=== PATIENT | female | born 1945 | race Caucasian/White ===

== ENCOUNTER 2021-08-14 16:52 | Emergency (ER) | payer MEDICARE, MEDICAID, SELFPAY ==
--- NOTE | ~2021-08-14 | CT_ITS ---
EXAMINATION: CT ABDOMEN AND PELVIS WITH CONTRAST CLINICAL INFORMATION: Abdominal pain COMPARISON: CT abdomen pelvis 01/31/2016 TECHNIQUE: Multidetector volumetric images were obtained from the superior aspect of the liver through the pubic symphysis following administration 85 mL of Omnipaque 350 intravenous contrast. Sagittal and coronal reformatted images were obtained on the technologist's workstation. Oral contrast: No This CT examination was performed using dose optimization techniques as appropriate, variously including the following: *Automated exposure control *Adjustment of mA and/or kV according to patient size (this includes techniques or standardized protocols for targeted exams where dose is matched to indication/reason for exam; i.e. extremities or head) *Use of iterative reconstruction technique DLP: 359 mGy-cm FINDINGS: LUNG BASES: The visualized lung bases are unremarkable. LIVER, GALLBLADDER, AND BILIARY TREE: The liver is normal in size, shape, and attenuation. No focal hepatic lesion or biliary ductal dilatation is present. The gallbladder is unremarkable with no evidence of radiopaque gallstones, gallbladder wall thickening, or obvious pericholecystic inflammatory changes. PANCREAS: Pancreas is mildly atrophic. SPLEEN: Unremarkable. ADRENAL GLANDS: Unremarkable aside from some mild thickening of the left adrenal gland, unchanged. KIDNEYS AND URETERS: The kidneys are normal in size, shape, and attenuation. No hydronephrosis, hydroureter, or calculi seen. No perinephric stranding. BLADDER: Unremarkable. GASTROINTESTINAL TRACT: There is colonic diverticulosis without diverticulitis. The small and large bowel are otherwise unremarkable. The appendix is none seen but there is no evidence of appendicitis. ABDOMINAL WALL: No significant hernia is appreciated. LYMPH NODES: No retroperitoneal lymphadenopathy. VASCULAR: Calcific atherosclerotic changes present in the aorta and iliofemoral vessels without aneurysm. PELVIC VISCERA: Normal-appearing anteverted uterus is present. An abnormal adnexal mass or free intraperitoneal fluid is not seen. OSSEOUS STRUCTURES: There is a compression fracture of T12 with anterior wedging. Marked degenerative changes present from L1 through L3 with mild grade 1 retrolistheses of L1 upon L2 and L2 upon L3. There is grade 1 anterolisthesis of 4 upon L5 and marked degenerative changes at L5-S1. No bony destructive lesions are seen. CT/CT abdomen pelvis w con IMPRESSION: An etiology for the patient's abdominal pain is not found. Incidental findings as described above. Fleischner guidelines were followed.
--- NOTE | ~2021-08-14 | CT_ITS ---
EXAMINATION: CT HEAD WITHOUT CONTRAST CLINICAL INFORMATION: Altered mental status. Weakness. COMPARISON: CT head 02/14/2020 TECHNIQUE: Contiguous axial imaging was performed from the skull base to vertex without intravenous administration of contrast. Coronal and sagittal reformatted images are performed at the CT scanner. [This CT examination was performed using dose optimization techniques as appropriate, variously including the following: *Automated exposure control *Adjustment of mA and/or kV according to patient size (this includes techniques or standardized protocols for targeted exams where dose is matched to indication/reason for exam; i.e. extremities or head) *Use of iterative reconstruction technique] DLP: 583 mGy-cm. FINDINGS: There is no evidence of acute intracranial hemorrhage or territorial infarction. No abnormal mass-effect or midline shift is seen. Orozco to white matter differentiation is well preserved. No extra-axial fluid collections are identified. There is generalized global volume loss. There is moderate prominence of the ventricles and the sulci . There is mild hypodensity of the periventricular white matter due to chronic small vessel ischemic disease. There are vascular calcifications of the internal carotid arteries bilaterally. There is no osseous abnormality. The mastoid air cells and visualized portions of the paranasal sinuses are well-aerated. CT/CT head/brain wo con IMPRESSION: No acute intracranial pathology.
[2021-08-14 17:23] VITALS: BP 142/86; BP 183/104; PULSE 50; PULSE 60; RESP 16; TEMP 37.6; O2SAT 94; O2SAT 95; BMI 16.7
--- NOTE | 2021-08-14 17:39 | ED.ABDPAIN ---
HPI - Abdominal Pain General Chief Complaint: Abdominal Pain Stated Complaint: nausea/vomiting Time Seen by Provider: 08/14/21 17:37 Source: EMS Mode of arrival: EMS Limitations: other (Patient lethargic and not answering questions. ) History of Present Illness HPI narrative: This is a 76-year-old female pmhx alzheimers dementia, GERD, HTN, anxiety presenting from [facility] with complaints of abdominal pain, patient is not answering questions, she appears up lethargic/ confused. According to staff from [facility] patient has been complaining of abdominal pain and has had a few episodes of vomiting and nausea since lunchtime. They report that she was vomiting food contents. No blood noted. They state patient typically does not eat well. However today at lunch she had a large amount of food. Patient is not really communicating well with me, she just says ?I have a belly ache ?. MD elicited complaint: abdominal pain Pertinent past history: none Onset (ago): hour(s) (5) Pain Consistency: constant Location: diffuse Severity: moderate Radiation: none Migration to: no migration Exacerbating factors: nothing Relieving factors: nothing Associated symptoms: denies other symptoms Related Data Home Medications Medication Instructions Recorded Confirmed acetaminophen 325 mg tablet 650 mg PO Q4H PRN 08/14/21 08/14/21 acetaminophen 325 mg tablet 650 mg PO Q4H PRN 08/14/21 08/14/21 (Tylenol) aspirin 81 mg tablet,delayed 81 mg PO DAILY 08/14/21 08/14/21 release atorvastatin 20 mg tablet 20 mg PO BEDTIME 08/14/21 08/14/21 fluphenazine decanoate 25 mg/mL 50 mg IM Q3W 08/14/21 08/14/21 injection solution hydroxyzine HCl 25 mg tablet 25 mg PO BID PRN 08/14/21 08/14/21 levothyroxine 50 mcg tablet 50 mcg PO DAILY 08/14/21 08/14/21 lorazepam 0.5 mg tablet 0.5 mg PO TID 08/14/21 08/14/21 montelukast 10 mg tablet 10 mg PO BEDTIME 08/14/21 08/14/21 valsartan 40 mg tablet (Diovan) 40 mg PO DAILY 08/14/21 08/14/21 Previous Rx's Medication Instructions Recorded ondansetron 4 mg disintegrating 4 mg PO ONCE PRN #10 tab 08/14/21 tablet Allergies Allergy/AdvReac Type Severity Reaction Status Date / Time From SEROQUEL AdvReac Intermediate DROWSY AND Uncoded 12/02/20 13:16 INCREASED HR Review of Systems Review of Systems Yes Unobtainable due to mental status [facility] Past Medical History Attestation statement: The following information was validated with the patient. Source: old records reviewed and nursing notes reviewed Social History Social History (System 12/02/20 @ 13:16 by Patricia Seay) Advance Directives: No Advance Directives Information Provided: No Physical Exam ED Vital Signs: Vital Signs - 24 hr 08/14/21 17:23 08/14/21 18:31 08/14/21 20:10 Temperature 99.6 F 97.8 F 98.2 F Pulse Rate 60 58 76 Respiratory Rate 16 15 14 Blood Pressure 183/104 H 131/59 L 179/82 H Pulse Oximetry 94 100 98 BMI result Body Mass Index 16.7 Patient is noted to be hypertensive. Appearance: Awake, alert, moving all extremities. No acute distress.? Head: Normocephalic, atraumatic, no step-offs or deformities Eyes: Pupils equal, round and reactive to light.? ENT: Pharynx normal.? Neck: Normal inspection.? Neck supple.? CVS: Normal heart rate and rhythm.? Pulses normal.? Respiratory: No respiratory distress.? Breath sounds normal.? Abdomen: Soft and + tenderness diffusely .? Skin: Skin warm and dry.? Normal skin color.? Normal skin turgor.? Extremities: No lower extremity edema.? No calf ttp. 4/5 strength to bilateral upper and lower extremities Back: No midline tenderness, no C-spine tenderness, full range of motion, no CVA tenderness bilaterally Neuro: Awake, alert moving all extremities. No motor deficit.? No sensory deficit. Course Reevaluation(s) Reevaluation #1: Patient's CBC is noted to be at baseline. Patient's potassium is noted to be slightly low 3.2. Will be given 20 medical equivalents of potassium. Patient's bilirubin is a noted to be elevated at 1.2. Lipase is negative. Patient's nurse and tech have tried to straight cath the patient however no success. I will try to straight cath patient myself. UA pending. CT of the abdomen and pelvis and head pending. Time: 20:36 Reevaluation #2: CT of the abdomen and pelvis unable to pinpoint an etiology for the patient's abdominal pain. Time: 21:04 Reevaluation #3: Patient has not vomited. Her labs within normal limits. Potassium is been given. Her urine is clean, no infection. At this time patient will be discharge back to [facility]. Comfortable with DC. Time: 21:25 MDM - Abdominal Pain MDM Narrative Medical decision making narrative: 1730 76 yo f pmhx alzheimers dementia, GERD, HTN, anxiety BIBA from [facility] with diffuse abdominal pain since lunch and few episodes of nausea and vomiting PE diffusely tender. Patient is awake, alert, moving all extremities however she is not answering any of my questions. Plan- fluids, labs, zofran. CT abdomen and pelvis, cultures and lactic. Medical Records Attestation: I reviewed the patient's medical records. Lab Data Attestation: I reviewed the patient's lab results. Result diagrams: 08/14/21 18:18 08/14/21 18:18 Labs: Lab Results 08/14/21 08/14/21 08/14/21 Range/Units 18:18 18:18 18:18 WBC 9.6 (4.8-10.8) X10*3/uL RBC 4.85 (4.20-5.50) X10*6/uL Hgb 10.6 L (12.0-16.0) g/dl Hct 36.1 L (37.0-47.0) % MCV 74.4 L (80.0-98.0) fL MCH 21.9 L (27.0-33.0) pg MCHC 29.4 L (31.0-35.0) g/dl RDW 14.8 (11.0-16.0) % Plt Count 214 (160-400) X10*3/uL MPV 9.5 (9.4-12.3) fL Immature Gran % (Auto) 0.3 (0.0-0.4) % Neut % (Auto) 93.6 H (45-73) % Lymph % (Auto) 3.1 L (20-40) % [place] % (Auto) 2.6 (2-11) % Eos % (Auto) 0.2 (0-4) % Baso % (Auto) 0.2 (0-2) % Lymph # (Auto) 0.3 L (1.2-4.9) X10*3/uL [place] # (Auto) 0.3 (0.1-1.2) X10*3/uL Eos # (Auto) 0.0 (0.0-0.4) X10*3/uL Baso # (Auto) 0.0 (0.0-0.2) X10*3/uL Abs Immat Gran (auto) 0.03 (0.00-0.03) X10*3/uL Absolute Neuts (auto) 9.0 H (2.0-8.3) x10*3/uL Absolute Nucleated RBC 0.000 (0.0-0.012) X10*3/uL Nucleated RBC % (auto) 0.0 (0.0-0.2) /100WBC Sodium 144 (135-145) mmol/L Potassium 3.2 L (3.3-5.1) mmol/L Chloride 106 (96-108) mmol/L Carbon Dioxide 27 (22-29) mmol/L Anion Gap 14 (12-20) BUN 28 H (9-16) mg/dL Creatinine 0.96 (0.5-1.4) mg/dL Estim Creat Clear Calc 30.7 Estimated GFR 57 Random Glucose 117 H (60-115) mg/dL Lactic Acid (0.5-2.0) mmol/L Calcium 9.1 (8.4-10.2) mg/dL Magnesium 1.9 (1.6-2.6) mg/dL Total Bilirubin 1.2 H (0.0-1.0) mg/dL AST 22 (5-31) U/L ALT 17 (0-31) U/L Alkaline Phosphatase 65 (39-117) U/L Total Protein 6.5 (6.5-8.0) g/dL Albumin 4.1 (3.5-5.0) g/dL Lipase 55 (8-78) U/L Urine Color Urine Appearance Urine pH (5.0-8.0) Ur Specific [place] (1.005-1.025) Urine Protein (NEG-TRACE) MG/DL Urine Glucose (UA) (NEG) MG/DL Urine Ketones (NEG) MG/DL Urine Blood (NEG) Urine Nitrite (NEG) Ur Leukocyte Esterase (NEG) COVID-19 (ZOHRA) Negative (Negative) COVID-19 Clin Com See Note 08/14/21 08/14/21 Range/Units 18:18 20:50 WBC (4.8-10.8) X10*3/uL RBC (4.20-5.50) X10*6/uL Hgb (12.0-16.0) g/dl Hct (37.0-47.0) % MCV (80.0-98.0) fL MCH (27.0-33.0) pg MCHC (31.0-35.0) g/dl RDW (11.0-16.0) % Plt Count (160-400) X10*3/uL MPV (9.4-12.3) fL Immature Gran % (Auto) (0.0-0.4) % Neut % (Auto) (45-73) % Lymph % (Auto) (20-40) % [place] % (Auto) (2-11) % Eos % (Auto) (0-4) % Baso % (Auto) (0-2) % Lymph # (Auto) (1.2-4.9) X10*3/uL [place] # (Auto) (0.1-1.2) X10*3/uL Eos # (Auto) (0.0-0.4) X10*3/uL Baso # (Auto) (0.0-0.2) X10*3/uL Abs Immat Gran (auto) (0.00-0.03) X10*3/uL Absolute Neuts (auto) (2.0-8.3) x10*3/uL Absolute Nucleated RBC (0.0-0.012) X10*3/uL Nucleated RBC % (auto) (0.0-0.2) /100WBC Sodium (135-145) mmol/L Potassium (3.3-5.1) mmol/L Chloride (96-108) mmol/L Carbon Dioxide (22-29) mmol/L Anion Gap (12-20) BUN (9-16) mg/dL Creatinine (0.5-1.4) mg/dL Estim Creat Clear Calc Estimated GFR Random Glucose (60-115) mg/dL Lactic Acid 1.1 (0.5-2.0) mmol/L Calcium (8.4-10.2) mg/dL Magnesium (1.6-2.6) mg/dL Total Bilirubin (0.0-1.0) mg/dL AST (5-31) U/L ALT (0-31) U/L Alkaline Phosphatase (39-117) U/L Total Protein (6.5-8.0) g/dL Albumin (3.5-5.0) g/dL Lipase (8-78) U/L Urine Color YELLOW Urine Appearance CLEAR Urine pH 7.0 (5.0-8.0) Ur Specific [place] 1.010 (1.005-1.025) Urine Protein NEG (NEG-TRACE) MG/DL Urine Glucose (UA) 100 H (NEG) MG/DL Urine Ketones 5 (NEG) MG/DL Urine Blood 3+ H (NEG) Urine Nitrite NEG (NEG) Ur Leukocyte Esterase NEG (NEG) COVID-19 (ZOHRA) (Negative) COVID-19 Clin Com Critical Care Time Critical Care Time Critical Care Time: No Discharge Plan Discharge Clinical Impression: Abdominal pain, Nausea & vomiting, Physical deconditioning Patient Disposition: Still a Patient Instructions: Acute Nausea and Vomiting (ED), Abdominal Pain (ED) Additional Instructions: Take your medications as prescribed. If you were prescribed antibiotics today, it is important that you take your medication to their entirety, do not skip any doses, do not finish them early. Follow-up with your primary care provider this week. Return to the emergency department with new or worsening symptoms. In case of emergency call 911 Prescription sent to [facility] Prescriptions: New ondansetron 4 mg tablet,disintegrating 4 mg PO ONCE PRN (Reason: nausea and vomiting) Qty: 10 0RF No Action acetaminophen 325 mg Tablet 650 mg PO Q4H PRN (Reason: Pain) 0RF acetaminophen [Tylenol] 325 mg Tablet 650 mg PO Q4H PRN (Reason: Fever) 0RF atorvastatin 20 mg Tablet 20 mg PO BEDTIME 0RF aspirin 81 mg Tablet,Delayed Release (Dr/Ec) 81 mg PO DAILY 0RF lorazepam 0.5 mg Tablet 0.5 mg PO TID 0RF fluphenazine decanoate 25 mg/mL Solution 50 mg IM Q3W 0RF Rx Instructions: on mondays levothyroxine 50 mcg Tablet 50 mcg PO DAILY 0RF montelukast 10 mg Tablet 10 mg PO BEDTIME 0RF hydroxyzine HCl 25 mg Tablet 25 mg PO BID PRN (Reason: Itching) 0RF valsartan [Diovan] 40 mg Tablet 40 mg PO DAILY 0RF Referrals: Physician,Unknown J [Primary Care Provider] - 2 days
[2021-08-14 18:25] LABS: MANUAL DIFF FLAG NO
[2021-08-14 18:26] LABS: Basophils Percent Auto 0.2 % (0-2); Eosinophils Percent Auto 0.2 % (0-4); Hematocrit 36.1 % (37.0-47.0); Hemoglobin 10.6 g/dl (12.0-16.0); Imm Gran Abs Auto 0.03 X10*3/uL (0.00-0.03); Imm Gran Pct Auto 0.3 % (0.0-0.4); Lymphocytes Absolute Auto 0.3 X10*3/uL (1.2-4.9); Lymphocytes Percent Auto 3.1 % (20-40); Mean Corpuscular HGB Conc 29.4 g/dl (31.0-35.0); Mean Corpuscular Hemoglobin 21.9 pg (27.0-33.0); Mean Corpuscular Volume 74.4 fL (80.0-98.0); Mean Platelet Volume 9.5 fL (9.4-12.3); Monocytes Absolute Auto 0.3 X10*3/uL (0.1-1.2); Monocytes Percent Auto 2.6 % (2-11); Neutrophils Percent Auto 93.6 % (45-73); Platelet Count 214 X10*3/uL (160-400); Red Blood Count 4.85 X10*6/uL (4.20-5.50); Red Cell Distribution Width 14.8 % (11.0-16.0); SCAN SMEAR FLAG 1; White Blood Count 9.6 X10*3/uL (4.8-10.8)
[2021-08-14 18:31] VITALS: BP 131/59; PULSE 58; RESP 15; TEMP 36.6; O2SAT 100
[2021-08-14] MEDS: ondansetron HCL 4 MG/2 ML VIAL IVPUSH (18:37)
[2021-08-14 18:38] LABS: Lactic Acid 1.1 mmol/L (0.5-2.0)
[2021-08-14] MEDS: 0.9 % Sodium Chloride 1,000 ML 999 ML IV ×2 (18:38→20:12)
[2021-08-14 18:44] LABS: Alanine Aminotransferase 17 U/L (0-31); Albumin Level 4.1 g/dL (3.5-5.0); Alkaline Phosphatase 65 U/L (39-117); Anion Gap 14 (12-20); Aspartate Amino Transferase 22 U/L (5-31); Bilirubin Total 1.2 mg/dL (0.0-1.0); Blood Urea Nitrogen 28 mg/dL (9-16); Calcium 9.1 mg/dL (8.4-10.2); Carbon Dioxide 27 mmol/L (22-29); Chloride 106 mmol/L (96-108); Creatinine Clr Calc Pharmacy 30.7; Estimated Glomerular Filt Rate 57; Glucose Random 117 mg/dL (60-115); Lipase 55 U/L (8-78); Magnesium 1.9 mg/dL (1.6-2.6); Potassium 3.2 mmol/L (3.3-5.1); Sodium 144 mmol/L (135-145); Total Protein 6.5 g/dL (6.5-8.0)
[2021-08-14 18:57] LABS: COVID-19 Test Negative (Negative); IDNOW Serial# 55D5AD1C
[2021-08-14] MEDS: iohexoL 350 MG/ML 100 ML INFUS..BTL IV (19:36)
[2021-08-14 20:10] VITALS: BP 179/82; PULSE 76; RESP 14; TEMP 36.8; O2SAT 98
--- NOTE | 2021-08-14 20:29 | PC.NURSE ---
Straight cath for urine sample attempted x3 with new materials each time. twice by this RN and once by Paul PCT. Megan SAINI aware of unsuccessful. Bladder scan shows ~200cc.
[2021-08-14 21:00] LABS: Appearance Urine CLEAR; Color Urine YELLOW; Glucose Urine UA 100 MG/DL (NEG); Leukocyte Esterase Urine NEG (NEG); Nitrite Urine NEG (NEG); UACC Culture Trigger NO; Urine Blood 3+ (NEG); Urine Ketones 5 MG/DL (NEG); Urine Protein NEG (NEG-TRACE)
[2021-08-14] MEDS: Potassium Chloride ER 20 MEQ TAB.ER.PRT PO (21:17)
[2021-08-14 21:18] LABS: Squamous Epithelial Cell Urine TRACE /LPF; WBC Urine 0 /HPF (0-4)
--- NOTE | 2021-08-14 21:28 | PC.NURSE ---
Pt successfully straight cath by Megan SAINI, drained ~450cc urine. Pt then stating she needs to urinate. Paul PCT bladder scanned with 137cc urine in bladder.
--- NOTE | 2021-08-14 21:32 | PHA.MEDREC ---
Pharmacy Consult ? Medication Reconciliation Pharmacy has completed the medication reconciliation. Patient from [facility]
--- NOTE | 2021-08-14 21:48 | PC.NURSE ---
This RN attempted to call RN to RN report to facility x 3. Call was disconnected each time before speaking with any staff member.
--- NOTE | 2021-08-14 23:07 | PC.NURSE ---
[facility] nurse contacted this RN. DC instructions provided over the phone, pt to be sent with DC instructions, labs, imaging and provider notes.
== END 2021-08-14 23:15 | disposition home or self-care (01) ==
PROVIDERS: Physician Assistant; Emergency Provider Internal Medicine
DX: R10.13 Epigastric pain (principal); R11.2 Nausea with vomiting, unspecified; I10 Essential (primary) hypertension; R51.9 Headache, unspecified; Z20.822 Contact with and (suspected) exposure to COVID-19; Z79.899 Other long term (current) drug therapy
CPT/HCPCS: 36415; 70450; 74177; 80053; 81001; 83605; 83690; 83735; 85025; 87040; 87635; 96374; 99284; J2405; Q9967

== ENCOUNTER 2023-01-24 01:51 | Emergency (ER) | payer MEDICARE, MEDICAID, SELFPAY ==
[2023-01-24 01:57] VITALS: BP 146/80; PULSE 68; O2SAT 100
[2023-01-24 02:13] VITALS: BP 144/80; PULSE 70; RESP 18; TEMP 37.1; O2SAT 99; BMI 22.6
--- NOTE | 2023-01-24 02:17 | PC.NURSE ---
HCP Eddie contacted ([phone]), this RN left a message, awaiting callback.
--- NOTE | 2023-01-24 02:24 | ED.GENADULT ---
HPI - General Adult General Chief complaint: General Medical Stated complaint: Erratic Behavior Time Seen by Provider: 01/24/23 02:24 Source: EMS Mode of arrival: EMS Limitations: altered mental status History of Present Illness HPI narrative: [facility] due to increased aggression and refusing to take medications. Paperwork from the facility says that patient is on hospice, she is a DNR, DNI, do not transfer. staff at the facility says that they contacted the physician on-call and they were instructed to transfer the patient to hospital for unclear reason. Related Data Home Medications Medication Instructions Recorded Confirmed acetaminophen 325 mg tablet 650 mg PO Q4H PRN Pain 08/14/21 08/14/21 acetaminophen 325 mg tablet 650 mg PO Q4H PRN Fever 08/14/21 08/14/21 (Tylenol) aspirin 81 mg tablet,delayed 81 mg PO DAILY 08/14/21 08/14/21 release atorvastatin 20 mg tablet 20 mg PO BEDTIME 08/14/21 08/14/21 fluphenazine decanoate 25 mg/mL 50 mg IM Q3W 08/14/21 08/14/21 injection solution hydroxyzine HCl 25 mg tablet 25 mg PO BID PRN Itching 08/14/21 08/14/21 levothyroxine 50 mcg tablet 50 mcg PO DAILY 08/14/21 08/14/21 lorazepam 0.5 mg tablet 0.5 mg PO TID 08/14/21 08/14/21 montelukast 10 mg tablet 10 mg PO BEDTIME 08/14/21 08/14/21 valsartan 40 mg tablet (Diovan) 40 mg PO DAILY 08/14/21 08/14/21 Previous Rx's Medication Instructions Recorded ondansetron 4 mg disintegrating 4 mg PO ONCE PRN nausea and 08/14/21 tablet vomiting #10 tabs Allergies Allergy/AdvReac Type Severity Reaction Status Date / Time From SEROQUEL AdvReac Intermediate DROWSY AND Uncoded 12/02/20 13:16 INCREASED HR Review of Systems Review of Systems: Yes Unobtainable due to mental condition PMFSH Past Medical History Medical History (Updated 01/24/23 @ 02:28 by Jeanette Brunner MD) Dementia Hypothyroidism Physical Exam ED Vital Signs: Vital Signs - 24 hr 01/24/23 02:13 Temperature 98.7 F Pulse Rate 70 Respiratory Rate 18 Blood Pressure 144/80 H Pulse Oximetry 99 Oxygen Delivery Method Room Air BMI result Body Mass Index 22.6 Const Other: Appearance: sleeping comfortably Eyes: Pupils equal, round and reactive to light. ENT: Pharynx normal. Neck: Normal inspection. Neck supple. No lymph nodes noted. No crepitus CVS: Normal heart rate and rhythm. Pulses normal. Normal S1 and S2 Respiratory: No respiratory distress. Breath sounds normal. No Wheezing. No rales Abdomen: Soft and nontender. No rigidity. No distention. Skin: Skin warm and dry. Normal skin color. Normal skin turgor. Extremities: No lower extremity edema. No Lacerations. No Rash Neuro: sleeping comfortably Psych: calm, cooperative, normal affect Medical Decision Making Medical Decision Making MDM Narrative: - patient is a DNR DNI do not transfer, patient was brought to the emergency room via ambulance from a hospice facility because she refused her medications. We are not going to force skipping her any medications. Patient is calm, comfortable, cooperative. - We tried contacting the patient's healthcare proxy multiple times but we were unable to get in touch with the healthcare proxy - we will be sending the patient back to hospice. Patient does not need any medical treatment at this time Discharge Plan Discharge Clinical Impression: Hospice care Patient Disposition: Home, Self-Care Additional Instructions: Please follow-up with your primary care physician tomorrow. If you have any worsening or new symptoms, please return to the emergency room or call 911 Prescriptions: No Action acetaminophen 325 mg Tablet 650 mg PO Q4H PRN (Reason: Pain) acetaminophen [Tylenol] 325 mg Tablet 650 mg PO Q4H PRN (Reason: Fever) atorvastatin 20 mg Tablet 20 mg PO BEDTIME aspirin 81 mg Tablet,Delayed Release (Dr/Ec) 81 mg PO DAILY lorazepam 0.5 mg Tablet 0.5 mg PO TID fluphenazine decanoate 25 mg/mL Solution 50 mg IM Q3W Rx Instructions: on mondays levothyroxine 50 mcg Tablet 50 mcg PO DAILY montelukast 10 mg Tablet 10 mg PO BEDTIME hydroxyzine HCl 25 mg Tablet 25 mg PO BID PRN (Reason: Itching) valsartan [Diovan] 40 mg Tablet 40 mg PO DAILY ondansetron 4 mg tablet,disintegrating 4 mg PO ONCE PRN (Reason: nausea and vomiting) Qty: 10 0RF
--- NOTE | 2023-01-24 02:33 | PC.NURSE ---
2nd attempt to contact HCP unsuccessful.
--- NOTE | 2023-01-24 02:35 | MHC.EDTECH ---
Call out to marcelle at [phone] to book transport for pt back to [facility]hab, estimated eta given was [phone]
--- NOTE | 2023-01-24 03:10 | PC.NURSE ---
[facility] report given to diana barrett regarding plan for pt to follow up with pcp. ems report given prior to transfer
== END 2023-01-24 03:10 | disposition home or self-care (01) ==
PROVIDERS: Emergency Provider Emergency Medicine; PCP Internal Medicine
DX: R41.0 Disorientation, unspecified (principal); Z51.5 Encounter for palliative care; Z79.899 Other long term (current) drug therapy
CPT/HCPCS: 99284

== ENCOUNTER 2025-02-20 07:40 | Emergency (ER) | payer MEDICARE, MEDICAID, SELFPAY ==
[2025-02-20] VITALS (16 sets, daily range): BP systolic 121–159; BP diastolic 62–90; PULSE 57–82; RESP 14–24; TEMP 36.3–36.8; O2SAT 93–100; BMI 14.6
--- NOTE | ~2025-02-20 | CT_ITS ---
EXAMINATION: CT CERVICAL SPINE WITHOUT CONTRAST CLINICAL INFORMATION: Fall, head trauma COMPARISON: February 20, 2025 TECHNIQUE: Axial imaging was performed from the base of the skull through T2 without IV contrast. Coronal and sagittal reformatted images were generated from the original axial data set. ALARA: The examination used one or more of the following radiation dose reduction techniques: Automated exposure control, iterative reconstruction, and/or adjustment of mA and/or KV. DLP: 928 mGY*cm FINDINGS: Again noted is moderate levoscoliosis measuring approximately 24 degrees. There is reversal cervical lordosis. Again noted is multifocal pyrophosphate deposition including transverse ligament, multiple discs, and ligament flavum. Multilevel degenerative disc disease and facet osteoarthritis is most pronounced at C5-6 and C6-7. No fracture line is evident. There is no prevertebral soft tissue edema. CT/CT cervical spine wo IV con IMPRESSION: No fracture is demonstrated. Stable multilevel degenerative disc disease, facet arthropathy, reversal cervical lordosis, and moderate levoscoliosis. Electronically signed by: Maximino Valdez MD 02/20/2025 03:47 PM EDT
--- NOTE | ~2025-02-20 | CT_ITS ---
EXAMINATION: CT CERVICAL SPINE WITHOUT CONTRAST CLINICAL INFORMATION: Follow-up possible head trauma COMPARISON: May 05, 2019 TECHNIQUE: Axial imaging was performed from the base of the skull through T2 without IV contrast. Coronal and sagittal reformatted images were generated from the original axial data set. ALARA: The examination used one or more of the following radiation dose reduction techniques: Automated exposure control, iterative reconstruction, and/or adjustment of mA and/or KV. DLP: 584 mGY*cm FINDINGS: There is pyrophosphate deposition in the cruciate ligament, within multiple discs, and within ligamentum flavum posterior C6 Multilevel degenerative changes are noted with moderate and severe disc space narrowing and degenerative endplate changes most pronounced at C5-6 and C6-7. There is facet joint space narrowing and osteophytes most pronounced on the right at C3-4 through C5-6 and most pronounced on the left Levoscoliosis measures 24 degrees. C4-C5: There is subtle anterolisthesis C6-7: There is mild grade 1 retrolisthesis. C7-T1: There is grade 1 anterolisthesis. There is no prevertebral soft tissue swelling. No fracture lines identified. 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 Moderate levoscoliosis. There is no acute fracture. Electronically signed by: Maximino Valdez MD 02/20/2025 09:56 AM EDT
--- NOTE | ~2025-02-20 | CT_ITS ---
EXAMINATION: CT HEAD WITHOUT IV CONTRAST HISTORY: fall with head strike. TECHNIQUE: Unenhanced helical CT of the head was performed per standard departmental protocol. Coronal and sagittal reformats of the head were also evaluated. One or more of the following techniques was used for dose reduction: Automated exposure control, adjustment of the mA and/or kV according to patient size, use of iterative reconstruction technique. DLP: 590 mGy-cm COMPARISON: Comparison is made with the prior examination performed earlier in the day. FINDINGS: BRAIN: There is diffuse prominence of the ventricular system and cortical sulci, consistent with atrophy. Periventricular and subcortical white matter hypodensities are noted which are nonspecific, but often seen in the setting of small vessel ischemic disease. There is no mass effect or midline shift. No intra- or extra-axial fluid collections are identified. SINUSES: The visualized paranasal sinuses are clear. The mastoid air cells and middle ear cavities are well pneumatized. ORBITS: The visualized orbits are unremarkable. BONES/SOFT TISSUES: The extracranial soft tissues are unremarkable. The calvarium is intact. No suspicious lytic or sclerotic lesions. CT/CT head/brain wo IV con IMPRESSION: No acute intracranial abnormality. Electronically signed by: Rufus Falcon MD 02/20/2025 03:50 PM EDT
--- NOTE | ~2025-02-20 | CT_ITS ---
EXAMINATION: CT HEAD WITHOUT CONTRAST CLINICAL INFORMATION: Fall,? Head strike. COMPARISON: Several priors, most recently 08/14/2021. TECHNIQUE: Contiguous axial imaging was performed from the skull base to vertex without intravenous administration of contrast. This CT examination was performed using dose optimization techniques as appropriate, variously including the following: *Automated exposure control *Adjustment of mA and/or kV according to patient size (this includes techniques or standardized protocols for targeted exams where dose is matched to indication/reason for exam; i.e. extremities or head) *Use of iterative reconstruction technique FINDINGS: There is no evidence of intracranial hemorrhage or extra-axial fluid collection. There is no mass effect, or edema. No CT evidence of acute territorial infarct. Ventricles, sulci, and cisterns are somewhat diffusely prominent, in keeping with age advanced cerebral and cerebellar volume loss. No hydrocephalus. No midline shift. Negative hyperdense MCA sign. Negative insular ribbon sign. Patchy periventricular and deep white matter hypoattenuation is consistent with moderate small vessel ischemic changes. 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 Normal pituitary. Mild atheromatous calcification of the bilateral carotid siphons and V4 segments vertebral arteries bilaterally. Globes and orbital contents image normally. No extracranial soft tissue abnormalities. The paranasal sinuses, mastoid air cells, and tympanic cavities are normally aerated. No suspicious bony abnormalities. There are no acute fractures evident. 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 CT/CT head/brain wo IV con IMPRESSION: 1. No acute intracranial abnormality. No fracture evident. 2. Chronic changes as discussed. Electronically signed by: Blaine Dos Santos MD 02/20/2025 09:54 AM EDT
--- NOTE | ~2025-02-20 | XR_ITS ---
EXAMINATION: XR CHEST CLINICAL INFORMATION: FALL COMPARISON: None available. TECHNIQUE: 2 views of the chest were obtained. FINDINGS: The cardiac, hilar, and mediastinal contours are normal. Aortic mural calcification. The lungs are hyperaerated however clear bilaterally. There is no pneumothorax or pleural effusion. There is no focal osseous or soft tissue abnormality. There is osteopenia of the osseous structures with degenerative changes of the spine. There are healed right rib fractures. No fractures evident on radiography. XR/XR chest 2V IMPRESSION: COPD. No active superimposed disease. Electronically signed by: Blaine Dos Santos MD 02/20/2025 10:58 AM EDT
--- NOTE | 2025-02-20 08:04 | ED.FALL ---
HPI - Fall General Chief Complaint: Fall Stated Complaint: SNF unwitnessed fall. Time Seen by Provider: 02/20/25 08:04 Source: patient, EMS and RN notes reviewed Mode of arrival: EMS Limitations: other (dementia) History of Present Illness ED Provider: OFELIA IVEY PA-C HPI Narrative: 79 year old female with pmhx significant for dementia, anxiety, schizophrenia, hypothyroidism, HTN, HLD, T2DM, anemia GERD presents to the ED today via EMS from SNF ([facility]) due to unwitnessed fall this morning. Staff reported rounding on the patient around 0615 - patient was noted to be well. She was then found down on the bathroom floor around 0700 in a lateral prone position, awake and at her baseline. Unknown head strike. EMS was contacted, cervical collar was placed, and patient was transported to the ED. Patient denies any pain at present. History is quite limited due to patient's advanced dementia. Paperwork from the facility indicates that patient is currently a DNR/DNI. She is not on AC. Related Data Home Medications ?Medication ?Instructions ?Recorded ?Confirmed acetaminophen 325 mg tablet 650 mg PO Q4H PRN Pain 08/14/21 08/14/21 acetaminophen 325 mg tablet 650 mg PO Q4H PRN Fever 08/14/21 08/14/21 (Tylenol) aspirin 81 mg tablet,delayed 81 mg PO DAILY 08/14/21 08/14/21 release atorvastatin 20 mg tablet 20 mg PO BEDTIME 08/14/21 08/14/21 fluphenazine decanoate 25 mg/mL 50 mg IM Q3W 08/14/21 08/14/21 injection solution hydroxyzine HCl 25 mg tablet 25 mg PO BID PRN Itching 08/14/21 08/14/21 levothyroxine 50 mcg tablet 50 mcg PO DAILY 08/14/21 08/14/21 lorazepam 0.5 mg tablet 0.5 mg PO TID 08/14/21 08/14/21 montelukast 10 mg tablet 10 mg PO BEDTIME 08/14/21 08/14/21 valsartan 40 mg tablet (Diovan) 40 mg PO DAILY 08/14/21 08/14/21 Previous Rx's ?Medication ?Instructions ?Recorded ondansetron 4 mg disintegrating 4 mg PO ONCE PRN nausea and 08/14/21 tablet vomiting #10 tabs cephalexin 500 mg capsule 500 mg PO Q12H #13 caps 02/20/25 Allergies Allergy/AdvReac Type Severity Reaction Status Date / Time From SEROQUEL AdvReac Intermediate DROWSY AND Uncoded 02/20/25 08:00 INCREASED HR Review of Systems Review of Systems: Yes Unobtainable due to mental condition (dementia) [facility] Past Medical History Attestation statement: The following information was validated with the patient. Source: old records reviewed and nursing notes reviewed Medical History Hypothyroidism Dementia Social History Social History Smoked in Last 30 Days: No Use of substances other than those prescribed or required for medical reasons: No Advance Directives: Yes Advance Directives Information Provided: Yes Advance Directives on File: No Do you have a plan to hurt others: No Plan Physical Exam Vital Signs: Vital Signs: Last Vital Signs Temp 98.2 F 02/20/25 22:34 Pulse 79 02/20/25 22:34 Resp 14 02/20/25 22:34 BP 147/62 H 02/20/25 22:34 Pulse Ox 96 02/20/25 22:34 O2 Del Method Room Air 02/20/25 22:34 BMI result Body Mass Index 14.6 hypertensive General: thin appearing, in NAD Skin: Warm, dry, intact. No rashes or lesions. Head: Normocephalic, atraumatic. EENT: Hearing is intact b/l. Conjunctiva clear. Sclera is anicteric. pinpoint however equal and reactive to light. EOM intact. Moist mucous membranes.? Neck: in cervical collar Cardiac: Chest wall symmetric. RRR Lungs: Normal respiratory effort without accessory muscle use. CTA bilaterally. Abdomen: soft, non-tender, non-distended. No rebound tenderness or guarding. Positive BS x4. Back: No midline spinous or paraspinal tenderness. No step off deformity. Ext: Upper and lower extremities atraumatic, without tenderness, deformity, swelling or erythema. Full ROM throughout. No shortening or rotation of either lower extremity. Neuro: alert, able to answer questions to some extent, not oriented to person place or situation which is patient's baseline. No slurred speech, facial droop. Strength 3/5 intact throughout. Sensation intact to light touch. NV intact distally Course Course Course Narrative: 0900 -- Attempted to contact patient's guardian (brother) Eddie - no answer. LVM for call back. Awaiting workup results. 1130 -- CBC showing slight leukopenia to 3.2. H and H stable when compared to priors and above transfusion threshold. Chemistry without acute electrolyte abnormality requiring intervention. Renal function around baseline. POC glucose 81. liver function wnl. initial troponin 30, appears to be chronically elevated. Repeat trop 23.2. EKG showing normal sinus rhythm, rate of 63 beats per minute, no acute ischemic changes or ST elevations. 1505 -- I was called to bedside as patient had witnessed fall in room. Per RN, RN and tech had entered patient's room to perform straight cath as UA was ordered. they noted patient to be sitting on the edge of the bed, agitated and puling at her gown. They had turned their back to put gloves on and upon turning back around, they noted patient to be on the ground, lying on her right side with a laceration to her right eye brow. she was awake, no noted LOC per RN. > upon my arrival, patient lying in bed. appears to be at her baseline, no palpable skull fx, PERRLA, no midline c spine tenderness, small 0.5 cm laceration noted to R eye brow cleaned and repaired with skin glue and seri strips. no other signs of trauma, FROM intact to b/l hips. she is mildly hypertensive, HOB elevated, vitals are otherwise wnl. > my attending Dr. Tovar aware. repeat ct head/ c spine ordered > camera placed at patients bedside for monitoring 1603 -- Was able to reach patient's HCP, her brother Eddie who informed me that he missed my call this morning and attempted to call back however was unable to reach me. He was unaware of that his mother has been transported to our facility. I explained the situation. I also explained outpatient had a 2nd fall while at our facility and she is currently being worked up for this. I informed him that if her CT scans and urine are normal, we will be transporting her back to her rehab facility. He verbalizes understanding and is agreeable with this. I provided him with our call back number if he is to have any further questions. > repeat ct head without intracranial bleed. no skull fracture. repeat ct c spine without fracture. > UA still pending 1800 -- patient is stable at the end of my shift. Sign-out given to Rebekah NICOLE pending urine results and disposition Reevaluation(s) Reevaluation #1: I Sharlene Stallings PA-C have accepted care of the patient at signed out pending urinalysis and final disposition Urine: Infected Medications Administered Discontinued Medications Generic Name Dose Route Start Last Admin Trade Name Freq PRN Reason Stop Dose Admin Cephalexin HCl 500 mg 02/20/25 20:58 02/20/25 21:21 Cephalexin 500 Mg Capsule PO 02/20/25 20:59 500 mg ONCE ONE Administration Sodium Chloride 500 mls @ 500 mls/hr 02/20/25 18:42 02/20/25 20:22 Ns IV 02/20/25 19:41 Infused .Q1H ONE Infusion Procedures Laceration Laceration 1: Site: face Side (If applicable): right Size (cm): 0.5 Description: linear Depth: simple, single layer Pre-repair: wound explored and irrigated extensively Skin layer closed with: other (dermabond + steri strips) Medical Decision Making Medical Decision Making MDM Narrative: 79 year old female with pmhx significant for dementia, anxiety, schizophrenia, hypothyroidism, HTN, HLD, T2DM, anemia GERD presents to the ED today via EMS from SNF ([facility]) due to unwitnessed fall this morning. Differential diagnosis includes anemia, electrolyte abnormality, arrhythmia, ACS, pneumonia, urinary tract infection, concussion, intracranial bleed, cervical fracture, contusion Plan for labs, ekg, UA, imaging Differential Diagnosis Differential Diagnoses: The differential diagnosis associated with the presentation includes as above. Admission/Observation Consideration of admission/observation: Escalation of care including admission/observation considered Lab Data [facility] Lab Attestation statement: I reviewed the patient's lab results. as above. 02/20/25 08:32 02/20/25 08:32 Labs: Lab Results 02/20/25 02/20/25 02/20/25 Range/Units 08:32 08:33 08:42 WBC 3.2 L (4.8-10.8) X10*3/uL RBC 5.29 (4.20-5.50) X10*6/uL Hgb 11.9 L (12.0-16.0) g/dl Hct 38.4 (37.0-47.0) % MCV 72.6 L (80.0-98.0) fL MCH 22.5 L (27.0-33.0) pg MCHC 31.0 (31.0-35.0) g/dl RDW 14.4 (11.0-16.0) % Plt Count 252 (160-400) X10*3/uL MPV 9.2 L (9.4-12.3) fL Immature Gran % (Auto) 0.6 H (0.0-0.4) % Neut % (Auto) 62.0 (45-73) % Lymph % (Auto) 20.9 (20-40) % Republic % (Auto) 13.4 H (2-11) % Eos % (Auto) 2.2 (0-4) % Baso % (Auto) 0.9 (0-2) % Lymph # (Auto) 0.7 L (1.2-4.9) X10*3/uL Republic # (Auto) 0.4 (0.1-1.2) X10*3/uL Eos # (Auto) 0.1 (0.0-0.4) X10*3/uL Baso # (Auto) 0.0 (0.0-0.2) X10*3/uL Abs Immat Gran (auto) 0.02 (0.00-0.03) X10*3/uL Absolute Neuts (auto) 2.0 (2.0-8.3) x10*3/uL Absolute Nucleated RBC 0.000 (0.0-0.012) X10*3/uL Nucleated RBC % (auto) 0.0 (0.0-0.2) /100WBC Smear Tech's Comments VERIFIED Sodium 139 (135-145) mmol/L Potassium 4.5 (3.3-5.1) mmol/L Chloride 102 (96-108) mmol/L Carbon Dioxide 28 (22-29) mmol/L Anion Gap 14 (12-20) BUN 21 H (9-16) mg/dL Creatinine 0.86 (0.5-1.4) mg/dL Estim Creat Clear Calc 30.2 Estimated GFR > 60 POC Glucose 81 (60-115) mg/dL Random Glucose 78 (60-115) mg/dL Calcium 9.3 (8.4-10.2) mg/dL Magnesium 2.3 (1.6-2.6) mg/dL Total Bilirubin 0.7 (0.0-1.0) mg/dL AST 26 (5-31) U/L ALT 8 (0-31) U/L Alkaline Phosphatase 80 (39-117) U/L Total Creatine Kinase 81 (26-140) U/L Troponin I High Sens 30.0 H (<3.5-17.0) ng/L Total Protein 6.7 (6.5-8.0) g/dL Albumin 3.9 (3.5-5.0) g/dL Urine Color Urine Appearance Urine pH (5.0-9.0) Ur Specific [place] (1.005-1.025) Urine Protein (Neg-Trace) mg/dL Urine Glucose (UA) (Negative) mg/dL Urine Ketones (Negative) mg/dL Urine Blood (Negative) Urine Nitrite (Negative) Ur Leukocyte Esterase (Negative) Urine RBC (0-2) /HPF Urine WBC (0-5) /HPF Ur Squamous Epith Cells (0-2) /HPF Urine Bacteria (None Seen) Hyaline Casts (0-2) /LPF COVID-19 (ZOHRA) Negative (Negative) COVID-19 Clin Com See Note Influenza Type A (CARROLL) Negative (Negative) Influenza Type B (CARROLL) Negative (Negative) Influenza A & B Note See Note 02/20/25 02/20/25 Range/Units 11:23 20:23 WBC (4.8-10.8) X10*3/uL RBC (4.20-5.50) X10*6/uL Hgb (12.0-16.0) g/dl Hct (37.0-47.0) % MCV (80.0-98.0) fL MCH (27.0-33.0) pg MCHC (31.0-35.0) g/dl RDW (11.0-16.0) % Plt Count (160-400) X10*3/uL MPV (9.4-12.3) fL Immature Gran % (Auto) (0.0-0.4) % Neut % (Auto) (45-73) % Lymph % (Auto) (20-40) % Republic % (Auto) (2-11) % Eos % (Auto) (0-4) % Baso % (Auto) (0-2) % Lymph # (Auto) (1.2-4.9) X10*3/uL Republic # (Auto) (0.1-1.2) X10*3/uL Eos # (Auto) (0.0-0.4) X10*3/uL Baso # (Auto) (0.0-0.2) X10*3/uL Abs Immat Gran (auto) (0.00-0.03) X10*3/uL Absolute Neuts (auto) (2.0-8.3) x10*3/uL Absolute Nucleated RBC (0.0-0.012) X10*3/uL Nucleated RBC % (auto) (0.0-0.2) /100WBC Smear Tech's Comments Sodium (135-145) mmol/L Potassium (3.3-5.1) mmol/L Chloride (96-108) mmol/L Carbon Dioxide (22-29) mmol/L Anion Gap (12-20) BUN (9-16) mg/dL Creatinine (0.5-1.4) mg/dL Estim Creat Clear Calc Estimated GFR POC Glucose (60-115) mg/dL Random Glucose (60-115) mg/dL Calcium (8.4-10.2) mg/dL Magnesium (1.6-2.6) mg/dL Total Bilirubin (0.0-1.0) mg/dL AST (5-31) U/L ALT (0-31) U/L Alkaline Phosphatase (39-117) U/L Total Creatine Kinase (26-140) U/L Troponin I High Sens 23.2 H (<3.5-17.0) ng/L Total Protein (6.5-8.0) g/dL Albumin (3.5-5.0) g/dL Urine Color Yellow Urine Appearance Clear Urine pH 6.0 (5.0-9.0) Ur Specific [place] 1.010 (1.005-1.025) Urine Protein Negative (Neg-Trace) mg/dL Urine Glucose (UA) Negative (Negative) mg/dL Urine Ketones Negative (Negative) mg/dL Urine Blood Negative (Negative) Urine Nitrite Positive H (Negative) Ur Leukocyte Esterase Negative (Negative) Urine RBC 0-2 (0-2) /HPF Urine WBC 0-5 (0-5) /HPF Ur Squamous Epith Cells 0-2 (0-2) /HPF Urine Bacteria 4+ (None Seen) Hyaline Casts 0-2 (0-2) /LPF COVID-19 (ZOHRA) (Negative) COVID-19 Clin Com Influenza Type A (CARROLL) (Negative) Influenza Type B (CARROLL) (Negative) Influenza A & B Note Independent Interpretation I performed an independent interpretation of an: EKG, Plain X-Ray and CT Scan Interpretation: ekg showing normal sinus rhythm , rate of 63 beats per minute, no acute ischemic changes or ST elevation cxr without infiltrate or consolidation ct head/brain without intracranial bleed ct cervical spine without fracture Radiology Impression Discussion of test interpretation with radiology: I have reviewed the radiologist's reading. Radiologist Impression: EXAMINATION: CT HEAD WITHOUT CONTRAST CLINICAL INFORMATION: Fall,? Head strike. COMPARISON: Several priors, most recently 08/14/2021. TECHNIQUE: Contiguous axial imaging was performed from the skull base to vertex without intravenous administration of contrast. This CT examination was performed using dose optimization techniques as appropriate, variously including the following: *Automated exposure control *Adjustment of mA and/or kV according to patient size (this includes techniques or standardized protocols for targeted exams where dose is matched to indication/reason for exam; i.e. extremities or head) *Use of iterative reconstruction technique FINDINGS: There is no evidence of intracranial hemorrhage or extra-axial fluid collection. There is no mass effect, or edema. No CT evidence of acute territorial infarct. Ventricles, sulci, and cisterns are somewhat diffusely prominent, in keeping with age advanced cerebral and cerebellar volume loss. No hydrocephalus. No midline shift. Negative hyperdense MCA sign. Negative insular ribbon sign. Patchy periventricular and deep white matter hypoattenuation is consistent with moderate small vessel ischemic changes. 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 Normal pituitary. Mild atheromatous calcification of the bilateral carotid siphons and V4 segments vertebral arteries bilaterally. Globes and orbital contents image normally. No extracranial soft tissue abnormalities. The paranasal sinuses, mastoid air cells, and tympanic cavities are normally aerated. No suspicious bony abnormalities. There are no acute fractures evident. 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 CT/CT head/brain wo IV con IMPRESSION: 1. No acute intracranial abnormality. No fracture evident. 2. Chronic changes as discussed. Electronically signed by: Blaine Dos Santos MD 02/20/2025 09:54 AM EDT Procedure(s): CT cervical spine wo IV con Accession Number(s): [id number] cc: Bredna Russell MD; Ofelia Ivey~ Report Number: [id number]: Total DLP = 744.69 mGy-cm EXAMINATION: CT CERVICAL SPINE WITHOUT CONTRAST CLINICAL INFORMATION: Follow-up possible head trauma COMPARISON: May 05, 2019 TECHNIQUE: Axial imaging was performed from the base of the skull through T2 without IV contrast. Coronal and sagittal reformatted images were generated from the original axial data set. ALARA: The examination used one or more of the following radiation dose reduction techniques: Automated exposure control, iterative reconstruction, and/or adjustment of mA and/or KV. DLP: 584 mGY*cm FINDINGS: There is pyrophosphate deposition in the cruciate ligament, within multiple discs, and within ligamentum flavum posterior C6 Multilevel degenerative changes are noted with moderate and severe disc space narrowing and degenerative endplate changes most pronounced at C5-6 and C6-7. There is facet joint space narrowing and osteophytes most pronounced on the right at C3-4 through C5-6 and most pronounced on the left Levoscoliosis measures 24 degrees. C4-C5: There is subtle anterolisthesis C6-7: There is mild grade 1 retrolisthesis. C7-T1: There is grade 1 anterolisthesis. There is no prevertebral soft tissue swelling. No fracture lines identified. 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 Moderate levoscoliosis. There is no acute fracture. Electronically signed by: Maximino Valdez MD 02/20/2025 09:56 AM EDT RP EXAMINATION: XR CHEST CLINICAL INFORMATION: FALL COMPARISON: None available. TECHNIQUE: 2 views of the chest were obtained. FINDINGS: The cardiac, hilar, and mediastinal contours are normal. Aortic mural calcification. The lungs are hyperaerated however clear bilaterally. There is no pneumothorax or pleural effusion. There is no focal osseous or soft tissue abnormality. There is osteopenia of the osseous structures with degenerative changes of the spine. There are healed right rib fractures. No fractures evident on radiography. XR/XR chest 2V IMPRESSION: COPD. No active superimposed disease. Electronically signed by: Blaine Dos Santos MD 02/20/2025 10:58 AM EDT RP Independent Historian Clinical information obtained from an independent historian. History obtained from or confirmed by: EMS External Record Review External record reviewed: Inpatient record Chronic Conditions Patient?s care impacted by: Other (dementia) Social Determinants Patient?s care significantly limited by Social Determinants of Health including: Other Social Determinant of Health Critical Care Time Critical Care Time Critical Care Time: No Discharge Plan Discharge Clinical Impression: Unwitnessed fall, Laceration of left eyebrow, Urinary tract infection Patient Disposition: Home, Self-Care Instructions: Laceration (ED), Urinary Tract Infection in Women (ED) Additional Instructions: Aminata was evaluated in the ED today following an unwitnessed fall. Blood work and imaging are reassuring. Urine shows that she has a urinary tract infection. See home care instructions. Take the cephalexin as directed. She should follow up with her primary care provider within the next few weeks Prescriptions: New cephalexin 500 mg capsule 500 mg PO Q12H Qty: 13 0RF No Action acetaminophen 325 mg Tablet 650 mg PO Q4H PRN (Reason: Pain) acetaminophen [Tylenol] 325 mg Tablet 650 mg PO Q4H PRN (Reason: Fever) atorvastatin 20 mg Tablet 20 mg PO BEDTIME aspirin 81 mg Tablet,Delayed Release (Dr/Ec) 81 mg PO DAILY lorazepam 0.5 mg Tablet 0.5 mg PO TID fluphenazine decanoate 25 mg/mL Solution 50 mg IM Q3W Rx Instructions: on mondays levothyroxine 50 mcg Tablet 50 mcg PO DAILY montelukast 10 mg Tablet 10 mg PO BEDTIME hydroxyzine HCl 25 mg Tablet 25 mg PO BID PRN (Reason: Itching) valsartan [Diovan] 40 mg Tablet 40 mg PO DAILY ondansetron 4 mg tablet,disintegrating 4 mg PO ONCE PRN (Reason: nausea and vomiting) Qty: 10 0RF Interventions: ED Discharge Assessment Last Done: 02/20/25 22:34 Discharge Date/Time: 02/20/25 22:35 Print Language: German
--- NOTE | 2025-02-20 08:09 | ECG_ITS ---
Test Reason : fall Blood Pressure : */* mmHG Vent. Rate : 63 BPM Atrial Rate : 63 BPM P-R Int : 164 ms QRS Dur : 72 ms QT Int : 438 ms P-R-T Axes : 66 35 -31 degrees QTcB Int : 448 ms Normal sinus rhythm Cannot rule out Anterior infarct , age undetermined Nonspecific ST and T wave abnormality Abnormal ECG When compared with ECG of 09-Mar-2020 14:47, T wave inversion less evident in Inferior leads Nonspecific T wave abnormality has replaced inverted T waves in Anterolateral leads Referred By: Ofelia Ivey Electronically Signed By: RAY GORE
[2025-02-20 08:41] LABS: Hematocrit 38.4 % (37.0-47.0); Hemoglobin 11.9 g/dl (12.0-16.0); Imm Gran Abs Auto 0.02 X10*3/uL (0.00-0.03); Imm Gran Pct Auto 0.6 % (0.0-0.4); Lymphocytes Absolute Auto 0.7 X10*3/uL (1.2-4.9); MANUAL DIFF FLAG SCAN; Mean Corpuscular HGB Conc 31.0 g/dl (31.0-35.0); Mean Corpuscular Hemoglobin 22.5 pg (27.0-33.0); Mean Corpuscular Volume 72.6 fL (80.0-98.0); NRBC Abs Auto 0.000 X10*3/uL (0.0-0.012); NRBC Pct Auto 0.0 /100WBC (0.0-0.2); PLT CLUMP 1; Red Blood Count 5.29 X10*6/uL (4.20-5.50); SCAN SMEAR FLAG 1
[2025-02-20 08:45] LABS: Glucose, Whole Blood 81 mg/dL (60-115)
[2025-02-20 08:54] LABS: Alanine Aminotransferase 8 U/L (0-31); Albumin Level 3.9 g/dL (3.5-5.0); Alkaline Phosphatase 80 U/L (39-117); Anion Gap 14 (12-20); Aspartate Amino Transferase 26 U/L (5-31); Blood Urea Nitrogen 21 mg/dL (9-16); Calcium 9.3 mg/dL (8.4-10.2); Carbon Dioxide 28 mmol/L (22-29); Chloride 102 mmol/L (96-108); Creatinine Clr Calc Pharmacy 30.2; Estimated Glomerular Filt Rate > 60; Magnesium 2.3 mg/dL (1.6-2.6); Potassium 4.5 mmol/L (3.3-5.1); Sodium 139 mmol/L (135-145); Total Protein 6.7 g/dL (6.5-8.0)
[2025-02-20 08:57] LABS: Platelet Count 252 X10*3/uL (160-400); White Blood Count 3.2 X10*3/uL (4.8-10.8)
[2025-02-20 09:01] LABS: Troponin-I High Sensitivity 30.0 ng/L (<3.5-17.0)
[2025-02-20 09:03] LABS: COVID-19 Test Negative (Negative); IDNOW Serial# 58CA691E
[2025-02-20 09:16] LABS: IDNOW Serial# 08D9AD1C; Influenza B2 Negative (Negative)
--- OUTSIDE RECORDS SUMMARY | 2025-02-20 10:01 | XMS_ITS | Encounter Summary ---
Author Organization [facility] Address [address] [place] [address] Care Team Providers Care Regional Coordinator Name Role Phone Trinity Russell MD Primary Care Provider + Encounter Details Date Type Department Care Team (Late st Contact Info) Description 11/03/2024 Lab Requisition [facility] - Main Lab [address] [facility] [place] [address] Trinity Russell MD [address] [facility] 1 [place], [place] [id number] Unspecified dementia, unspecified severity, without behavioral disturbance, psychotic disturbance, mood disturbance, and anxiety (CMS/HCC V24, CMS/HCC V28) Social History Tobacco Use Types Packs/Day Years Used Date Smoking Tobacco: Never Assessed Comments Unknown Sex and Gender Information Value Date Recorded Sex Assigned at Not on file Legal Sex Female 10:07 PM EST Gender Identity Not on file Sexual Orientation Not on file documented as of this encounter Plan of Treatment Not on file documented as of this encounter Procedures Procedure Name Priority Date/Time Associated Diagnosis Comments CBC WITH AUTO DIFFERENTIAL Routine 11/03/2024 9:56 AM EDT Unspecified dementia, unspecified severity, without behavioral disturbance, psychotic disturbance, mood disturbance, and anxiety (CMS/HCC V24, CMS/HCC V28) CBC AND DIFFERENTIAL Routine 11/03/2024 9:56 AM EDT Unspecified dementia, unspecified severity, without behavioral disturbance, psychotic disturbance, mood disturbance, and anxiety (CMS/HCC V24, CMS/HCC V28) COMPREHENSIVE METABOLIC PANEL Routine 11/03/2024 9:56 AM EDT Unspecified dementia, unspecified severity, without behavioral disturbance, psychotic disturbance, mood disturbance, and anxiety (CMS/HCC V24, CMS/HCC V28) documented in this encounter Results * (ABNORMAL) CBC auto differential (11/03/2024 9:56 AM EDT) WBC 3.4(L) 4.8 - 10.8 K/mcL LAB HEMETOLOGY METHOD 11/03/2024 2:01 PM [facility] RBC 4.70 3.80 - 4.80 M/mcL LAB HEMETOLOGY METHOD 11/03/2024 2:01 PM [facility] Hemoglobin 10.5(L) 11.5 - 16.0 g/dL LAB HEMETOLOGY METHOD 11/03/2024 2:01 PM [facility] Hematocrit 35.6 35.0 - 47.0 % LAB HEMETOLOGY METHOD 11/03/2024 2:01 PM [facility] MCV 76.6(L) 79.0 - 98.0 FL LAB HEMETOLOGY METHOD 11/03/2024 2:01 PM [facility] MCH 22.6(L) 27.0 - 32.0 pcg LAB HEMETOLOGY METHOD 11/03/2024 2:01 PM [facility] MCHC 29.5(L) 32.0 - 37.0 g/dL LAB HEMETOLOGY METHOD 11/03/2024 2:01 PM [facility] RDW 14.8 11.0 - 15.0 % LAB HEMETOLOGY METHOD 11/03/2024 2:01 PM [facility] Platelets 262 130 - 400 K/mcL LAB HEMETOLOGY METHOD 11/03/2024 2:01 PM [facility] MPV 10.1 7.0 - 11.0 FL LAB HEMETOLOGY METHOD 11/03/2024 2:01 PM [facility] NRBC 0.0 <1.0 % LAB HEMETOLOGY METHOD 11/03/2024 2:01 PM [facility] NRBC Absolute 0.00 <0.10 K/mcL LAB HEMETOLOGY METHOD 11/03/2024 2:01 PM [facility] Neutrophils Relative 61.0 % LAB HEMETOLOGY METHOD 11/03/2024 2:01 PM [facility] Lymphocytes Relative 22.7 % LAB HEMETOLOGY METHOD 11/03/2024 2:01 PM [facility] Monocytes Relative 8.4 % LAB HEMETOLOGY METHOD 11/03/2024 2:01 PM [facility] Eosinophils Relative 6.7 % LAB HEMETOLOGY METHOD 11/03/2024 2:01 PM [facility] Basophils Relative 0.9 % LAB HEMETOLOGY METHOD 11/03/2024 2:01 [facility] Immature Granulocytes Relative 0.3 % LAB HEMETOLOGY METHOD 11/03/2024 2:01 PM [facility] Neutrophils Absolute 2.10 1.50 - 7.00 K/mcL LAB HEMETOLOGY METHOD 11/03/2024 2:01 PM [facility] Lymphocytes Absolute 0.78(L) 1.00 - 5.00 K/mcL LAB HEMETOLOGY METHOD 11/03/2024 2:01 PM [facility] Monocytes Absolute 0.29 0.20 - 1.00 K/mcL LAB HEMETOLOGY METHOD 11/03/2024 2:01 PM [facility] Eosinophils Absolute 0.23 0.00 - 0.50 K/mcL LAB HEMETOLOGY METHOD 11/03/2024 2:01 PM [facility] Basophils Absolute 0.03 0.00 - 0.20 K/mcL LAB HEMETOLOGY METHOD 11/03/2024 2:01 PM EDT [facility] Immature Granulocytes Absolute 0.01 0.00 - 0.03 K/mcL LAB HEMETOLOGY METHOD 11/03/2024 2:01 PM [facility] Blood Venous blood specimen / Unknown Venipuncture / Unknown 11/03/2024 9:56 AM EDT 11/03/2024 12:12 PM EDT us Trinity Russell MD LAB BLOOD ORDERABLES Fin al Result [facility] [address] [place] [address], * (ABNORMAL) Comprehensive metabolic panel (11/03/2024 9:56 AM EDT) Sodium 143 133 - 145 mmol/L LAB CHEMISTRY METHOD 11/03/2024 1:35 PM [facility] Potassium 3.4(L) 3.5 - 5.5 mmol/L LAB CHEMISTRY METHOD 11/03/2024 1:35 PM [facility] Chloride 106 96 - 110 mmol/L LAB CHEMISTRY METHOD 11/03/2024 1:35 PM [facility] CO2 30 21 - 32 mmol/L LAB CHEMISTRY METHOD 11/03/2024 1:35 PM [facility] Anion Gap 7 3 - 11 LAB CHEMISTRY METHOD 11/03/2024 1:35 PM [facility] Glucose 82 70 - 100 mg/dL LAB CHEMISTRY METHOD 11/03/2024 1:35 PM [facility] BUN 25 5 - 25 mg/dL LAB CHEMISTRY METHOD 11/03/2024 1:35 PM [facility] Creatinine 0.90 0.50 - 1.10 mg/dL LAB CHEMISTRY METHOD 11/03/2024 1:35 PM [facility] eGFR 65 >=60 mL/min/1. 73m2 LAB CHEMISTRY METHOD 11/03/2024 1:35 PM EDT [facility] Comment:Calculation based on the Chronic Kidney Disease Epidemiology Collaboration (CKD-EPI) equation refit without adjustment for race. BUN/Creatinine Ratio 27.8 LAB CHEMISTRY METHOD 11/03/2024 1:35 PM EDT [facility] Calcium 8.6 8.5 - 10.5 mg/dL LAB CHEMISTRY METHOD 11/03/2024 1:35 PM EDT [facility] AST (SGOT) 16 10 - 42 unit/L LAB CHEMISTRY METHOD 11/03/2024 1:35 PM [facility] ALT (SGPT) 12 10 - 60 unit/L LAB CHEMISTRY METHOD 11/03/2024 1:35 PM [facility] Alkaline Phosphatase 73 42 - 121 unit/L LAB CHEMISTRY METHOD 11/03/2024 1:35 PM EDT [facility] Total Protein 5.8(L) 6.0 - 8.0 g/dL LAB CHEMISTRY METHOD 11/03/2024 1:35 PM [facility] Albumin 3.0(L) 3.2 - 5.0 g/dL LAB CHEMISTRY METHOD 11/03/2024 1:35 PM [facility] Total Bilirubin 0.4 0.0 - 1.4 mg/dL LAB CHEMISTRY METHOD 11/03/2024 1:35 PM [facility] Blood Venous blood specimen / Unknown Venipuncture / Unknown 11/03/2024 9:56 AM EDT 11/03/2024 12:12 PM EDT us Trinity Russell MD LAB BLOOD ORDERABLES Fin al Result [facility] [address] [place] [address], documented in this encounter Visit Diagnoses Diagnosis Unspecified dementia, unspecified severity, without behavioral disturbance, psychotic disturbance, mood disturbance, and anxiety (CMS/HCC V24, CMS/HCC V28) documented in this encounter Care Teams Regional Coordinator Relationship Specialty Start Date End Date Trinity Russell MD [address] [place] [address] PCP - General Family Medicine 09/03/24 documented as of this encounter
--- OUTSIDE RECORDS SUMMARY | 2025-02-20 10:01 | XMS_ITS | Encounter Summary ---
Author Organization [facility] Address [address] [place] [address] Care Team Providers Care Group Chief Operator Name Role Phone Trinity Russell MD Primary Care Provider + Encounter Details Date Type Department Care Team (Late st Contact Info) Description 11/10/2024 Lab Requisition [facility] - Main Lab 299 [facility] [place] [address] Trinity Russell MD 819 [facility] 1 [place], [place] [id number] Adult failure to thrive; Atherosclerotic heart disease of [place] coronary artery without angina pectoris; Type 2 diabetes mellitus without complications (CMS/HCC V24, CMS/HCC V28) Social History Tobacco [...] Procedure Name Priority Date/Time Associated Diagnosis Comments COMPLETE BLOOD COUNT Routine 11/10/2024 9:45 AM EDT 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 Type 2 diabetes mellitus without complications (CMS/HCC V24, CMS/HCC V28) COMPREHENSIVE METABOLIC PANEL Routine 11/10/2024 9:45 AM EDT 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 Type 2 diabetes mellitus without complications (CMS/HCC V24, CMS/HCC V28) documented in this encounter Results * (ABNORMAL) Comprehensive metabolic panel (11/10/2024 9:45 AM EDT) Sodium 144 133 - 145 mmol/L LAB CHEMISTRY METHOD 11/10/2024 3:36 PM [facility] Potassium 3.1(L) 3.5 - 5.5 mmol/L LAB CHEMISTRY METHOD 11/10/2024 3:36 PM [facility] Chloride 106 96 - 110 mmol/L LAB CHEMISTRY METHOD 11/10/2024 3:36 PM [facility] CO2 27 21 - 32 mmol/L LAB CHEMISTRY METHOD 11/10/2024 3:36 PM [facility] Anion Gap 11 3 - 11 LAB CHEMISTRY METHOD 11/10/2024 3:36 PM [facility] Glucose 41(L) 70 - 100 mg/dL LAB CHEMISTRY METHOD 11/10/2024 3:36 PM [facility] BUN 22 5 - 25 mg/dL LAB CHEMISTRY METHOD 11/10/2024 3:36 PM [facility] Creatinine 0.97 0.50 - 1.10 mg/dL LAB CHEMISTRY METHOD 11/10/2024 3:36 PM [facility] eGFR 60 >=60 mL/min/1. 73m2 LAB CHEMISTRY METHOD 11/10/2024 3:36 PM [facility] Comment:Calculation based on the Chronic Kidney Disease Epidemiology Collaboration (CKD-EPI) equation refit without adjustment for race. BUN/Creatinine Ratio 22.7 LAB CHEMISTRY METHOD 11/10/2024 3:36 PM [facility] Calcium 8.7 8.5 - 10.5 mg/dL LAB CHEMISTRY METHOD 11/10/2024 3:36 PM [facility] AST (SGOT) 19 10 - 42 unit/L LAB CHEMISTRY METHOD 11/10/2024 3:36 PM [facility] ALT (SGPT) 21 10 - 60 unit/L LAB CHEMISTRY METHOD 11/10/2024 3:36 PM EDT [facility] Alkaline Phosphatase 76 42 - 121 unit/L LAB CHEMISTRY METHOD 11/10/2024 3:36 PM EDT [facility] Total Protein 6.3 6.0 - 8.0 g/dL LAB CHEMISTRY METHOD 11/10/2024 3:36 PM EDT [facility] Albumin 3.3 3.2 - 5.0 g/dL LAB CHEMISTRY METHOD 11/10/2024 3:36 PM EDT [facility] Total Bilirubin 0.7 0.0 - 1.4 mg/dL LAB CHEMISTRY METHOD 11/10/2024 3:36 PM EDT [facility] Blood Venous blood specimen / Unknown Venipuncture / Unknown 11/10/2024 9:45 AM EDT 11/10/2024 1:07 PM EDT us Trinity Russell MD LAB BLOOD ORDERABLES Fin al Result [facility] [address] [place] [address], * (ABNORMAL) Complete blood count (11/10/2024 9:45 AM EDT) WBC 4.5(L) 4.8 - 10.8 K/mcL LAB HEMETOLOGY METHOD 11/10/2024 3:06 PM EDT [facility] RBC 4.90(H) 3.80 - 4.80 M/mcL LAB HEMETOLOGY METHOD 11/10/2024 3:06 PM EDT [facility] Hemoglobin 11.1(L) 11.5 - 16.0 g/dL LAB HEMETOLOGY METHOD 11/10/2024 3:06 PM EDT [facility] Hematocrit 38.3 35.0 - 47.0 % LAB HEMETOLOGY METHOD 11/10/2024 3:06 PM EDT [facility] MCV 78.2(L) 79.0 - 98.0 FL LAB HEMETOLOGY METHOD 11/10/2024 3:06 PM EDT [facility] MCH 22.7(L) 27.0 - 32.0 pcg LAB HEMETOLOGY METHOD 11/10/2024 3:06 PM EDT [facility] MCHC 29.0(L) 32.0 - 37.0 g/dL LAB HEMETOLOGY METHOD 11/10/2024 3:06 PM EDT [facility] RDW 14.9 11.0 - 15.0 % LAB HEMETOLOGY METHOD 11/10/2024 3:06 PM EDT [facility] Platelets 273 130 - 400 K/mcL LAB HEMETOLOGY METHOD 11/10/2024 3:06 PM EDT [facility] MPV 10.0 7.0 - 11.0 FL LAB HEMETOLOGY METHOD 11/10/2024 3:06 PM EDT [facility] NRBC 0.0 <1.0 % LAB HEMETOLOGY METHOD 11/10/2024 3:06 PM EDT [facility] NRBC Absolute 0.00 <0.10 K/mcL LAB HEMETOLOGY METHOD 11/10/2024 3:06 PM EDT [facility] Blood Venous blood specimen / Unknown Venipuncture / Unknown 11/10/2024 9:45 AM EDT 11/10/2024 1:07 PM EDT us Trinity Russell MD LAB BLOOD ORDERABLES Fin al Result [facility] [address] [place] [address], documented in this encounter Visit Diagnoses Diagnosis 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
--- OUTSIDE RECORDS SUMMARY | 2025-02-20 10:01 | XMS_ITS | Encounter Summary ---
Author Organization [facility] Address [address] [place] [address] Care Team Providers Care Cancer Spec Name Role Phone Trinity Russell MD Primary Care Provider + Encounter Details Date Type Department Care Team (Late st Contact Info) Description 11/08/2024 Lab Requisition [facility] - Main Lab [address] [facility] [place] [address] Trinity Russell MD 8[address] [facility] 1 [place], [place] [phone] Hypokalemia Social History Tobacco Use Types Packs/Day Years [...] Procedure Name Priority Date/Time Associated Diagnosis Comments POTASSIUM Routine 11/08/2024 7:57 AM EDT Hypokalemia documented in this encounter Results * Potassium (11/08/2024 7:57 AM EDT) Potassium 4.7 3.5 - 5.5 mmol/L LAB CHEMISTRY METHOD 11/08/2024 12:28 PM EDT [facility] Blood Venous blood specimen / Unknown 11/08/2024 7:57 AM EDT 11/08/2024 12:21 PM EDT us Trinity Russell MD LAB BLOOD ORDERABLES Fin al Result [facility] [address] [place] [address], documented in this encounter Visit Diagnoses Diagnosis Hypokalemia Hypopotassemia documented in this encounter Care Teams Cancer Spec Relationship Specialty Start Date End Date Trinity Russell MD [address] [place] [address] PCP - General Family Medicine 09/03/24 documented as of this encounter
--- OUTSIDE RECORDS SUMMARY | 2025-02-20 10:01 | XMS_ITS | Encounter Summary ---
Author Organization [facility] Address [address] [place] [address] Care Team Providers Care Insurance Salesperson Name Role Phone Trinity Russell MD Primary Care Provider + Encounter Details Date Type Department Care Team (Late st Contact Info) Description 12/29/2024 Lab Requisition [facility] - Main Lab [address] [facility] [place] [address] Trinity Russell MD [address] [id number] Unspecified dementia, unspecified severity, with other behavioral disturbance (CMS/HCC V24, CMS/HCC V28) Social History Tobacco [...] Procedure Name Priority Date/Time Associated Diagnosis Comments BASIC METABOLIC PANEL Routine 12/29/2024 9:55 AM EDT Unspecified dementia, unspecified severity, with other behavioral disturbance (CMS/HCC V24, CMS/HCC V28) documented in this encounter Results * Basic metabolic panel (12/29/2024 9:55 AM EDT) Sodium 139 133 - 145 mmol/L LAB CHEMISTRY METHOD 12/29/2024 1:17 PM EDT [facility] Potassium 3.7 3.5 - 5.5 mmol/L LAB CHEMISTRY METHOD 12/29/2024 1:17 PM EDT [facility] Chloride 105 96 - 110 mmol/L LAB CHEMISTRY METHOD 12/29/2024 1:17 PM T [facility] CO2 27 21 - 32 mmol/L LAB CHEMISTRY METHOD 12/29/2024 1:17 PM [facility] Anion Gap 7 3 - 11 LAB CHEMISTRY METHOD 12/29/2024 1:17 PM [facility] Glucose 99 70 - 100 mg/dL LAB CHEMISTRY METHOD 12/29/2024 1:17 PM [facility] BUN 17 5 - 25 mg/dL LAB CHEMISTRY METHOD 12/29/2024 1:17 PM [facility] Creatinine 0.77 0.50 - 1.10 mg/dL LAB CHEMISTRY METHOD 12/29/2024 1:17 PM [facility] eGFR 79 >=60 mL/min/1. 73m2 LAB CHEMISTRY METHOD 12/29/2024 1:17 PM [facility] Comment:Calculation based on the Chronic Kidney Disease Epidemiology Collaboration (CKD-EPI) equation refit without adjustment for race. BUN/Creatinine Ratio 22.1 LAB CHEMISTRY METHOD 12/29/2024 1:17 PM [facility] Calcium 8.8 8.5 - 10.5 mg/dL LAB CHEMISTRY METHOD 12/29/2024 1:17 PM [facility] Blood Venous blood specimen / Unknown Venipuncture / Unknown 12/29/2024 9:55 AM EDT 12/29/2024 12:12 PM EDT us Trinity Russell MD LAB BLOOD ORDERABLES Fin al Result [facility] [address] [place] [address], documented in this encounter Visit Diagnoses Diagnosis Unspecified dementia, unspecified severity, with other behavioral disturbance (CMS/HCC V24, CMS/HCC V28) documented in this encounter Care Teams Insurance Salesperson Relationship Specialty Start Date End Date Trinity Russell MD [address] [place] [address] PCP - General Family Medicine 09/03/24 documented as of this encounter
--- OUTSIDE RECORDS SUMMARY | 2025-02-20 10:01 | XMS_ITS | Encounter Summary ---
Author Organization [facility] Address [address] [place] [address] Care Team Providers Care Dress Draper Name Role Phone Elder, Trinity Harmon MD Primary Care Provider + Encounter Details Date Type Department Care Team (Late st Contact Info) Description 09/10/2024 Lab Requisition [facility] Lab [address] [facility] [place] [address] Johanny Jarvis NP [address] [place] [address] Other snf (current) drug therapy Social History Tobacco Use Types Packs/Day Years [...] Associated Diagnosis Comments COMPLETE BLOOD COUNT Routine 09/10/2024 5:28 AM EDT Other long term care pharmacist (current) drug therapy COMPREHENSIVE METABOLIC PANEL Routine 09/10/2024 5:28 AM EDT Other long term care pharmacist (current) drug therapy documented in this encounter Results * Comprehensive metabolic panel (09/10/2024 5:28 AM EDT) Sodium 139 133 - 145 mmol/L LAB CHEMISTRY METHOD 09/10/2024 3:14 PM EDT [facility] Potassium 4.4 3.5 - 5.5 mmol/L LAB CHEMISTRY METHOD 09/10/2024 3:14 PM EDT [facility] Chloride 103 96 - 110 mmol/L LAB CHEMISTRY METHOD 09/10/2024 3:14 PM [facility] CO2 31 21 - 32 mmol/L LAB CHEMISTRY METHOD 09/10/2024 3:14 PM [facility] Anion Gap 5 3 - 11 LAB CHEMISTRY METHOD 09/10/2024 3:14 PM [facility] Glucose 71 70 - 100 mg/dL LAB CHEMISTRY METHOD 09/10/2024 3:14 PM [facility] BUN 17 5 - 25 mg/dL LAB CHEMISTRY METHOD 09/10/2024 3:14 PM [facility] Creatinine 0.72 0.50 - 1.10 mg/dL LAB CHEMISTRY METHOD 09/10/2024 3:14 PM [facility] eGFR 85 >=60 mL/min/1. 73m2 LAB CHEMISTRY METHOD 09/10/2024 3:14 PM [facility] Comment:Calculation based on the Chronic Kidney Disease Epidemiology Collaboration (CKD-EPI) equation refit without adjustment for race. BUN/Creatinine Ratio 23.6 LAB CHEMISTRY METHOD 09/10/2024 3:14 PM [facility] Calcium 8.9 8.5 - 10.5 mg/dL LAB CHEMISTRY METHOD 09/10/2024 3:14 PM [facility] AST (SGOT) 16 10 - 42 unit/L LAB CHEMISTRY METHOD 09/10/2024 3:14 PM [facility] ALT (SGPT) 16 10 - 60 unit/L LAB CHEMISTRY METHOD 09/10/2024 3:14 PM [facility] Alkaline Phosphatase 75 42 - 121 unit/L LAB CHEMISTRY METHOD 09/10/2024 3:14 PM [facility] Total Protein 6.2 6.0 - 8.0 g/dL LAB CHEMISTRY METHOD 09/10/2024 3:14 PM [facility] Albumin 3.2 3.2 - 5.0 g/dL LAB CHEMISTRY METHOD 09/10/2024 3:14 PM EDT [facility] Total Bilirubin 0.6 0.0 - 1.4 mg/dL LAB CHEMISTRY METHOD 09/10/2024 3:14 PM EDT [facility] Blood Venous blood specimen / Unknown Venipuncture / Unknown 09/10/2024 5:28 AM EDT 09/10/2024 12:00 PM EDT Johanny Jarvis [facility] LAB BLOOD ORDERABLES Final Resul t [facility] [address] [place] [address], * (ABNORMAL) Complete blood count (09/10/2024 5:28 AM EDT) WBC 4.3(L) 4.8 - 10.8 K/mcL LAB HEMETOLOGY METHOD 09/10/2024 12:25 PM EDT [facility] RBC 5.00(H) 3.80 - 4.80 M/mcL LAB HEMETOLOGY METHOD 09/10/2024 12:25 PM EDT [facility] Hemoglobin 11.1(L) 11.5 - 16.0 g/dL LAB HEMETOLOGY METHOD 09/10/2024 12:25 PM EDT [facility] Hematocrit 37.5 35.0 - 47.0 % LAB HEMETOLOGY METHOD 09/10/2024 12:25 PM EDT [facility] MCV 75.8(L) 79.0 - 98.0 FL LAB HEMETOLOGY METHOD 09/10/2024 12:25 PM EDT [facility] MCH 22.4(L) 27.0 - 32.0 pcg LAB HEMETOLOGY METHOD 09/10/2024 12:25 PM EDT [facility] MCHC 29.6(L) 32.0 - 37.0 g/dL LAB HEMETOLOGY METHOD 09/10/2024 12:25 PM EDT [facility] RDW 14.7 11.0 - 15.0 % LAB HEMETOLOGY METHOD 09/10/2024 12:25 PM EDT [facility] Platelets 243 130 - 400 K/mcL LAB HEMETOLOGY METHOD 09/10/2024 12:25 PM EDT [facility] MPV 9.5 7.0 - 11.0 FL LAB HEMETOLOGY METHOD 09/10/2024 12:25 PM EDT [facility] NRBC 0.0 <1.0 % LAB HEMETOLOGY METHOD 09/10/2024 12:25 PM EDT [facility] NRBC Absolute 0.00 <0.10 K/mcL LAB HEMETOLOGY METHOD 09/10/2024 12:25 PM EDT [facility] Blood Venous blood specimen / Unknown Venipuncture / Unknown 09/10/2024 5:28 AM EDT 09/10/2024 12:00 PM EDT [facility] LAB BLOOD ORDERABLES Final Resul t [facility] [address] [place] [address], documented in this encounter Visit Diagnoses Diagnosis Other snf (current) drug therapy documented in this encounter Care Teams Dress Draper Relationship Specialty Start Date End Date Trinity Russell MD [address] [place] [address] PCP - General Family Medicine 09/03/24 documented as of this encounter
--- OUTSIDE RECORDS SUMMARY | 2025-02-20 10:01 | XMS_ITS | Encounter Summary ---
Author Organization [facility] Address [address] [place] [address] Care Team Providers Care Art Handler Name Role Phone Trinity Russell MD Primary Care Provider + Encounter Details Date Type Department Care Team (Late st Contact Info) Description 12/10/2024 Lab Requisition [facility] - Main Lab 299 [facility] [address] Trinity Russell MD [address] [facility] 1 [place], [place] [id number] Unspecified dementia, unspecified severity, without behavioral disturbance, [...] Associated Diagnosis Comments COMPLETE BLOOD COUNT Routine 12/11/2024 5:46 AM EDT Unspecified dementia, unspecified severity, without behavioral disturbance, psychotic disturbance, mood disturbance, and anxiety (CMS/HCC V24, CMS/HCC V28) COMPREHENSIVE METABOLIC PANEL Routine 12/11/2024 5:46 AM EDT Unspecified dementia, unspecified severity, without behavioral disturbance, psychotic disturbance, mood disturbance, and anxiety (CMS/HCC V24, CMS/HCC V28) documented in this encounter Results * (ABNORMAL) Comprehensive metabolic panel (12/11/2024 5:46 AM EDT) Sodium 137 133 - 145 mmol/L LAB CHEMISTRY METHOD 12/11/2024 9:25 AM [facility] Potassium 4.2 3.5 - 5.5 mmol/L LAB CHEMISTRY METHOD 12/11/2024 9:25 AM [facility] Chloride 103 96 - 110 mmol/L LAB CHEMISTRY METHOD 12/11/2024 9:25 AM [facility] CO2 30 21 - 32 mmol/L LAB CHEMISTRY METHOD 12/11/2024 9:25 AM [facility] Anion Gap 4 3 - 11 LAB CHEMISTRY METHOD 12/11/2024 9:25 AM [facility] Glucose 80 70 - 100 mg/dL LAB CHEMISTRY METHOD 12/11/2024 9:25 AM [facility] BUN 29(H) 5 - 25 mg/dL LAB CHEMISTRY METHOD 12/11/2024 9:25 AM [facility] Creatinine 0.78 0.50 - 1.10 mg/dL LAB CHEMISTRY METHOD 12/11/2024 9:25 AM [facility] eGFR 77 >=60 mL/min/1. 73m2 LAB CHEMISTRY METHOD 12/11/2024 9:25 AM [facility] Comment:Calculation based on the Chronic Kidney Disease Epidemiology Collaboration (CKD-EPI) equation refit without adjustment for race. BUN/Creatinine Ratio 37.2 LAB CHEMISTRY METHOD 12/11/2024 9:25 AM [facility] Calcium 8.9 8.5 - 10.5 mg/dL LAB CHEMISTRY METHOD 12/11/2024 9:25 AM [facility] AST (SGOT) 19 10 - 42 unit/L LAB CHEMISTRY METHOD 12/11/2024 9:25 AM [facility] ALT (SGPT) 14 10 - 60 unit/L LAB CHEMISTRY METHOD 12/11/2024 9:25 AM [facility] Alkaline Phosphatase 82 42 - 121 unit/L LAB CHEMISTRY METHOD 12/11/2024 9:25 AM EDT [facility] Total Protein 6.3 6.0 - 8.0 g/dL LAB CHEMISTRY METHOD 12/11/2024 9:25 AM EDT [facility] Albumin 3.2 3.2 - 5.0 g/dL LAB CHEMISTRY METHOD 12/11/2024 9:25 AM EDT [facility] Total Bilirubin 0.6 0.0 - 1.4 mg/dL LAB CHEMISTRY METHOD 12/11/2024 9:25 AM EDT [facility] Blood Venous blood specimen / Unknown Venipuncture / Unknown 12/11/2024 5:46 AM EDT 12/11/2024 8:18 AM EDT Trinity Rsusell MD LAB BLOOD ORDERABLES Fin al Result [facility] [address] [place] [address], * (ABNORMAL) Complete blood count (12/11/2024 5:46 AM EDT) WBC 6.5 4.8 - 10.8 K/[facility] LAB HEMETOLOGY METHOD 12/11/2024 8:42 AM EDT [facility] RBC 4.90(H) 3.80 - 4.80 M/[facility] LAB HEMETOLOGY METHOD 12/11/2024 8:42 AM EDT [facility] Hemoglobin 10.8(L) 11.5 - 16.0 g/dL LAB HEMETOLOGY METHOD 12/11/2024 8:42 AM EDT [facility] Hematocrit 36.6 35.0 - 47.0 % LAB HEMETOLOGY METHOD 12/11/2024 8:42 AM EDT [facility] MCV 74.7(L) 79.0 - 98.0 FL LAB HEMETOLOGY METHOD 12/11/2024 8:42 AM EDT [facility] MCH 22.0(L) 27.0 - 32.0 pcg LAB HEMETOLOGY METHOD 12/11/2024 8:42 AM EDT [facility] MCHC 29.5(L) 32.0 - 37.0 g/dL LAB HEMETOLOGY METHOD 12/11/2024 8:42 AM EDT [facility] RDW 14.5 11.0 - 15.0 % LAB HEMETOLOGY METHOD 12/11/2024 8:42 AM EDT [facility] Platelets 293 130 - 400 K/mcL LAB HEMETOLOGY METHOD 12/11/2024 8:42 AM EDT [facility] MPV 10.0 7.0 - 11.0 FL LAB HEMETOLOGY METHOD 12/11/2024 8:42 AM EDT [facility] NRBC 0.0 <1.0 % LAB HEMETOLOGY METHOD 12/11/2024 8:42 AM T [facility] NRBC Absolute 0.00 <0.10 K/mcL LAB HEMETOLOGY METHOD 12/11/2024 8:42 AM [facility] Blood Venous blood specimen / Unknown Venipuncture / Unknown 12/11/2024 5:46 AM EDT 12/11/2024 8:19 AM EDT us Trinity Russell MD LAB BLOOD ORDERABLES Fin al Result [facility] [address] [place] [address], documented in this encounter Visit Diagnoses Diagnosis Unspecified dementia, unspecified severity, without behavioral disturbance, psychotic disturbance, mood disturbance, and anxiety (CMS/HCC V24, CMS/HCC V28) documented in this encounter Care Teams Art Handler Relationship Specialty Start Date End Date Trinity Russell MD [address] [place] [address] PCP - General Family Medicine 09/03/24 documented as of this encounter
--- OUTSIDE RECORDS SUMMARY | 2025-02-20 10:01 | XMS_ITS | Encounter Summary ---
Author Organization [facility] Address [address] [place] [address] Care Team Providers Care Streetcar Starter Name Role Phone Trinity Russell MD Primary Care Provider + Encounter Details Date Type Department Care Team (Late st Contact Info) Description 11/14/2024 Lab Requisition [facility] - Main Lab 299 [facility] [place] [address] Trinity Russell MD [address] [phone] Essential (primary) hypertension; Hyperlipidemia, unspecified Social History Tobacco Use Types Packs/Day Years [...] Associated Diagnosis Comments BASIC METABOLIC PANEL Routine 11/14/2024 7:55 AM EDT Essential (primary) hypertension Hyperlipidemia, unspecified documented in this encounter Results * Basic metabolic panel (11/14/2024 7:55 AM EDT) Sodium 139 133 - 145 mmol/L LAB CHEMISTRY METHOD 11/14/2024 12:48 PM EDT [facility] Potassium 4.0 3.5 - 5.5 mmol/L LAB CHEMISTRY METHOD 11/14/2024 12:48 PM EDT [facility] Chloride 104 96 - 110 mmol/L LAB CHEMISTRY METHOD 11/14/2024 12:48 PM EDT [facility] CO2 26 21 - 32 mmol/L LAB CHEMISTRY METHOD 11/14/2024 12:48 PM EDT [facility] Anion Gap 9 3 - 11 LAB CHEMISTRY METHOD 11/14/2024 12:48 PM EDT [facility] Glucose 81 70 - 100 mg/dL LAB CHEMISTRY METHOD 11/14/2024 12:48 PM EDT [facility] BUN 21 5 - 25 mg/dL LAB CHEMISTRY METHOD 11/14/2024 12:48 PM EDT [facility] Creatinine 0.72 0.50 - 1.10 mg/dL LAB CHEMISTRY METHOD 11/14/2024 12:48 PM EDT [facility] eGFR 85 >=60 mL/min/1. 73m2 LAB CHEMISTRY METHOD 11/14/2024 12:48 PM EDT [facility] Comment:Calculation based on the Chronic Kidney Disease Epidemiology Collaboration (CKD-EPI) equation refit without adjustment for race. BUN/Creatinine Ratio 29.2 LAB CHEMISTRY METHOD 11/14/2024 12:48 PM EDT [facility] Calcium 8.7 8.5 - 10.5 mg/dL LAB CHEMISTRY METHOD 11/14/2024 12:48 PM [facility] Blood Venous blood specimen / Unknown Venipuncture / Unknown 11/14/2024 7:55 AM EDT 11/14/2024 10:33 AM EDT us Trinity Russell MD LAB BLOOD ORDERABLES Fin al Result [facility] [address] [place] [address], documented in this encounter Visit Diagnoses Diagnosis Essential (primary) hypertension Unspecified essential hypertension Hyperlipidemia, unspecified documented in this encounter Care Teams Streetcar Starter Relationship Specialty Start Date End Date Trinity Russell MD [address] [place] [address] PCP - General Family Medicine 09/03/24 documented as of this encounter
--- OUTSIDE RECORDS SUMMARY | 2025-02-20 10:01 | XMS_ITS | Clinical Summary ---
Author Organization [address] [address] Phone Care Team Providers Care Ironing Machine Operator Name Role Phone Pcp, Unknown Primary Care Provider Unavailabl e Allergies Active Allergy Reactions Criticality Noted Date Comments Quetiapine Unknown 05/24/2022 Social History Tobacco Use Types Packs/Day Years Used Date Smoking Tobacco: Never Assessed Education Answer Date Recorded Are you interested in more education? Not on kareen e 10/21/2022 Are you concerned about learning? Not on file 10/21/2022 No 10/21/2022 No 10/21/2022 Digital Access Answer Date Recorded No 11/21/2022 No 11/21/2022 Reliable internet access at home? Not on file 11/21/2022 Device with a working camera? Not on file Comments Unknown Sex and Gender Information Value Date Recorded Sex Assigned at Not on file Legal Sex Female 11:24 AM EST Gender Identity Not on file Sexual Orientation Not on file Last Filed Vital Signs Vital Sign Reading Time Taken Comments Blood Pressure 128/84 05/24/2022 2:05 PM EST Pulse 51 05/24/2022 11:43 AM EST Temperature 36.7 C (98.1 F) 05/24/2022 11:43 AM EST Respiratory Rate 14 05/24/2022 2:49 PM EST Oxygen Saturation 100% 05/24/2022 2:05 PM EST Inhaled Oxygen Concentration - - Weight - - Height - - Body Mass Index - - Plan of Treatment Not on file Medical Devices Not on file Insurance [place] [facility] [address] [id number] [place]IC[place] [address] [id number] [place] [employer] [address] [address] MEDIC[place] PART [place] [employer] [address] [id number] MEDICARE PART [place] [employer] [address] [address] MEDICARE PART A & B [address] [place], [place] [address]HEALTH [place] [employer] [address] [address] MEDICARE PART [place] Advance Directives For more information, please contact: [phone] (9AM - 5PM [facility], Sunday-Sunday) Documents on File Type Date Recorded Patient Psychiatric Arnp Expl anation MOLST 05/24/2022 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 It is not the complete legal health record.[facility]
--- OUTSIDE RECORDS SUMMARY | 2025-02-20 10:01 | XMS_ITS | Encounter Summary ---
Author Organization [facility] Address [address] [place] [address] Care Team Providers Care Estimator Name Role Phone Trinity Russell MD Primary Care Provider + Encounter Details Date Type Department Care Team (Late st Contact Info) Description 11/12/2024 Lab Requisition [facility] - Main Lab 299 [facility] [place] [address] Trinity Russell MD [address] [phone] Essential (primary) hypertension Social History Tobacco Use Types Packs/Day Years [...] Associated Diagnosis Comments BASIC METABOLIC PANEL Routine 11/12/2024 5:59 AM EDT Essential (primary) hypertension documented in this encounter Results * (ABNORMAL) Basic metabolic panel (11/12/2024 5:59 AM EDT) Sodium 141 133 - 145 mmol/L LAB CHEMISTRY METHOD 11/12/2024 9:52 AM EDT [facility] Potassium 3.6 3.5 - 5.5 mmol/L LAB CHEMISTRY METHOD 11/12/2024 9:52 AM EDT [facility] Chloride 108 96 - 110 mmol/L LAB CHEMISTRY METHOD 11/12/2024 9:52 AM EDT [facility] CO2 27 21 - 32 mmol/L LAB CHEMISTRY METHOD 11/12/2024 9:52 AM [facility] Anion Gap 6 3 - 11 LAB CHEMISTRY METHOD 11/12/2024 9:52 AM [facility] Glucose 71 70 - 100 mg/dL LAB CHEMISTRY METHOD 11/12/2024 9:52 AM [facility] BUN 20 5 - 25 mg/dL LAB CHEMISTRY METHOD 11/12/2024 9:52 AM [facility] Creatinine 0.71 0.50 - 1.10 mg/dL LAB CHEMISTRY METHOD 11/12/2024 9:52 AM [facility] eGFR 87 >=60 mL/min/1. 73m2 LAB CHEMISTRY METHOD 11/12/2024 9:52 AM [facility] Comment:Calculation based on the Chronic Kidney Disease Epidemiology Collaboration (CKD-EPI) equation refit without adjustment for race. BUN/Creatinine Ratio 28.2 LAB CHEMISTRY METHOD 11/12/2024 9:52 AM [facility] Calcium 8.3(L) 8.5 - 10.5 mg/dL LAB CHEMISTRY METHOD 11/12/2024 9:52 AM [facility] Blood Venous blood specimen / Unknown Venipuncture / Unknown 11/12/2024 5:59 AM EDT 11/12/2024 8:21 AM EDT us Trinity Russell MD LAB BLOOD ORDERABLES Fin al Result [facility] [address] [place] [address], documented in this encounter Visit Diagnoses Diagnosis Essential (primary) hypertension Unspecified essential hypertension documented in this encounter Care Teams Estimator Relationship Specialty Start Date End Date Trinity Russell MD [address] [place] [address] PCP - General Family Medicine 09/03/24 documented as of this encounter
--- OUTSIDE RECORDS SUMMARY | 2025-02-20 10:01 | XMS_ITS | Clinical Summary ---
Author Organization 299 [facility] Address [address] [place] [address] Phone Care Team Providers Care Senior Tableau Developer Name Role Phone Trinity Russell MD Primary Care Provider + Encounters Date Type Department Care Team Description 12/29/[address] [facility] Lab [address] [place] [address] Trinity Russell MD Unspecified dementia, unspecified severity, with other behavioral disturbance (CMS/[facility] V24, CMS/[facility] V28) 12/10/[address] [facility] Lab [address] [place] [address] Trinity Russell MD Unspecified dementia, unspecified severity, without behavioral disturbance, psychotic disturbance, mood disturbance, and anxiety (CMS/[facility] V24, CMS/[facility] V28) from Last 3 Months Social History Tobacco Use Types Packs/Day Years Used Date Smoking Tobacco: Never Assessed Comments Unknown Sex and Gender Information Value Date Recorded Sex Assigned at Not on file Legal Sex Female 10:07 PM EST Gender Identity Not on file Sexual Orientation Not on file Plan of Treatment Health Maintenance Due Date Last Done Comments DTaP,Tdap,and Td Vaccines (1 - Tdap) 1964 Pneumococcal Vaccine: 50+ Years (1 of 2 - PCV) 1964 Zoster Vaccines (1 of 2) 1995 RSV Immunization Adult Patients (1 - 1-dose 75+ series) 2020 Cholesterol Screening (Lipid Panel) 05/27/2022 Falls Risk Assessment 05/27/2022 Hepatitis C Screening 05/27/2022 Medicare Annual Wellness Visit 05/27/2022 Osteoporosis Screening (Bone Density Screening) 05/27/2022 Social Influencers of Health Screening 05/27/2022 COVID-19 Vaccine ( season) 2024 Depression Screening 06/25/2024 Influenza Vaccine (#1) 2025 Hypertension/CHF/CAD Annual BMP Blood Test 12/29/2025 12/29/2024, 12/11/2024, 11/14/2024, Additional history exists HIB Vaccines Aged Out No longer eligi ble based on patient's age to complete this topic HPV Vaccines Aged Out No longer eligi ble based on patient's age to complete this topic Hepatitis A Vaccines Aged Out No long er eligible based on patient's age to complete this topic Hepatitis B Vaccines Aged Out No long er eligible based on patient's age to complete this topic IPV Vaccines Aged Out No longer eligi ble based on patient's age to complete this topic MMR Vaccines Aged Out No longer eligi ble based on patient's age to complete this topic Meningococcal ACWY Vaccine Aged Out N o longer eligible based on patient's age to complete this topic Meningococcal B Vaccine Aged Out No l onger eligible based on patient's age to complete this topic RSV Immunization Patients Under 20 months Aged Out No longer eligible based on patient's age to complete this topic Varicella Vaccines Aged Out No longer eligible based on patient's age to complete this topic Procedures Procedure Name Priority Date/Time Associated Diagnosis Comments BASIC METABOLIC PANEL Routine 12/29/2024 9:55 AM EDT Unspecified dementia, unspecified severity, with other behavioral disturbance (CMS/HCC V24, CMS/HCC V28) COMPREHENSIVE METABOLIC PANEL Routine 12/11/2024 5:46 AM EDT Unspecified dementia, unspecified severity, without behavioral disturbance, psychotic disturbance, mood disturbance, and anxiety (CMS/HCC V24, CMS/HCC V28) COMPLETE BLOOD COUNT Routine 12/11/2024 5:46 AM EDT Unspecified dementia, unspecified severity, without behavioral disturbance, psychotic disturbance, mood disturbance, and anxiety (CMS/HCC V24, CMS/HCC V28) from Last 3 Months Results * Basic metabolic panel (12/29/2024 9:55 AM EDT) Sodium 139 133 - 145 mmol/L LAB CHEMISTRY METHOD 12/29/2024 1:17 PM [facility] Potassium 3.7 3.5 - 5.5 mmol/L LAB CHEMISTRY METHOD 12/29/2024 1:17 PM [facility] Chloride 105 96 - 110 mmol/L LAB CHEMISTRY METHOD 12/29/2024 1:17 PM [facility] CO2 27 21 - 32 mmol/L LAB CHEMISTRY METHOD 12/29/2024 1:17 PM [facility] Anion Gap 7 3 - 11 LAB CHEMISTRY METHOD 12/29/2024 1:17 PM [facility] Glucose 99 70 - 100 mg/dL LAB CHEMISTRY METHOD 12/29/2024 1:17 PM [facility] BUN 17 5 - 25 mg/dL LAB CHEMISTRY METHOD 12/29/2024 1:17 PM [facility] Creatinine 0.77 0.50 - 1.10 mg/dL LAB CHEMISTRY METHOD 12/29/2024 1:17 PM [facility] eGFR 79 >=60 mL/min/1. 73m2 LAB CHEMISTRY METHOD 12/29/2024 1:17 PM [facility] Comment:Calculation based on the Chronic Kidney Disease Epidemiology Collaboration (CKD-EPI) equation refit without adjustment for race. BUN/Creatinine Ratio 22.1 LAB CHEMISTRY METHOD 12/29/2024 1:17 PM [facility] Calcium 8.8 8.5 - 10.5 mg/dL LAB CHEMISTRY METHOD 12/29/2024 1:17 PM [facility] Blood Venous blood specimen / Unknown Venipuncture / Unknown 12/29/2024 9:55 AM EDT 12/29/2024 12:12 PM EDT us Trinity Russell MD LAB BLOOD ORDERABLES Fin al Result [facility] [address] [place] [address], * (ABNORMAL) Complete blood count (12/11/2024 5:46 AM EDT) [facility] WBC 6.5 4.8 - 10.8 K/mcL LAB HEMETOLOGY METHOD 12/11/2024 8:42 AM EDT [facility] RBC 4.90(H) 3.80 - 4.80 M/mcL LAB HEMETOLOGY METHOD 12/11/2024 8:42 AM EDT [facility] Hemoglobin 10.8(L) 11.5 - 16.0 g/dL LAB HEMETOLOGY METHOD 12/11/2024 8:42 AM EDT [facility] Hematocrit 36.6 35.0 - 47.0 % LAB HEMETOLOGY METHOD 12/11/2024 8:42 AM EDT [facility] MCV 74.7(L) 79.0 - 98.0 FL LAB HEMETOLOGY METHOD 12/11/2024 8:42 AM EDT [facility] MCH 22.0(L) 27.0 - 32.0 pcg LAB HEMETOLOGY METHOD 12/11/2024 8:42 AM EDT [facility] MCHC 29.5(L) 32.0 - 37.0 g/dL LAB HEMETOLOGY METHOD 12/11/2024 8:42 AM EDT [facility] RDW 14.5 11.0 - 15.0 % LAB HEMETOLOGY METHOD 12/11/2024 8:42 AM EDT [facility] Platelets 293 130 - 400 K/mcL LAB HEMETOLOGY METHOD 12/11/2024 8:42 AM EDT [facility] MPV 10.0 7.0 - 11.0 FL LAB HEMETOLOGY METHOD 12/11/2024 8:42 AM EDT [facility] NRBC 0.0 <1.0 % LAB HEMETOLOGY METHOD 12/11/2024 8:42 AM EDT [facility] NRBC Absolute 0.00 <0.10 K/mcL LAB HEMETOLOGY METHOD 12/11/2024 8:42 AM EDT [facility] Blood Venous blood specimen / Unknown Venipuncture / Unknown 12/11/2024 5:46 AM EDT 12/11/2024 8:19 AM EDT us Trinity Russell MD LAB BLOOD ORDERABLES Fin al Result [facility] [address] [place] [address], [place] [phone] * (ABNORMAL) Comprehensive metabolic panel (12/11/2024 5:46 AM EDT) Sodium 137 133 - 145 mmol/L LAB CHEMISTRY METHOD 12/11/2024 9:25 AM [facility] Potassium 4.2 3.5 - 5.5 mmol/L LAB CHEMISTRY METHOD 12/11/2024 9:25 AM [facility] Chloride 103 96 - 110 mmol/L LAB CHEMISTRY METHOD 12/11/2024 9:25 AM [facility] CO2 30 21 - 32 mmol/L LAB CHEMISTRY METHOD 12/11/2024 9:25 AM [facility] Anion Gap 4 3 - 11 LAB CHEMISTRY METHOD 12/11/2024 9:25 AM [facility] Glucose 80 70 - 100 mg/dL LAB CHEMISTRY METHOD 12/11/2024 9:25 AM [facility] BUN 29(H) 5 - 25 mg/dL LAB CHEMISTRY METHOD 12/11/2024 9:25 AM [facility] Creatinine 0.78 0.50 - 1.10 mg/dL LAB CHEMISTRY METHOD 12/11/2024 9:25 AM [facility] eGFR 77 >=60 mL/min/1. 73m2 LAB CHEMISTRY METHOD 12/11/2024 9:25 AM [facility] Comment:Calculation based on the Chronic Kidney Disease Epidemiology Collaboration (CKD-EPI) equation refit without adjustment for race. BUN/Creatinine Ratio 37.2 LAB CHEMISTRY METHOD 12/11/2024 9:25 AM [facility] Calcium 8.9 8.5 - 10.5 mg/dL LAB CHEMISTRY METHOD 12/11/2024 9:25 AM [facility] AST (SGOT) 19 10 - 42 unit/L LAB CHEMISTRY METHOD 12/11/2024 9:25 AM [facility] ALT (SGPT) 14 10 - 60 unit/L LAB CHEMISTRY METHOD 12/11/2024 9:25 AM [facility] Alkaline Phosphatase 82 42 - 121 unit/L LAB CHEMISTRY METHOD 12/11/2024 9:25 AM [facility] Total Protein 6.3 6.0 - 8.0 g/dL LAB CHEMISTRY METHOD 12/11/2024 9:25 AM [facility] Albumin 3.2 3.2 - 5.0 g/dL LAB CHEMISTRY METHOD 12/11/2024 9:25 AM [facility] Total Bilirubin 0.6 0.0 - 1.4 mg/dL LAB CHEMISTRY METHOD 12/11/2024 9:25 AM [facility] Blood Venous blood specimen / Unknown Venipuncture / Unknown 12/11/2024 5:46 AM EDT 12/11/2024 8:18 AM EDT us Trinity Russell MD LAB BLOOD ORDERABLES Fin al Result [facility] [address] [place] [address], from Last 3 Months Insurance MEDICARE [place]ICA[place] - [place] Care Teams Senior Tableau Developer Relationship Specialty Start Date End Date Trinity Russell MD [address] [place] [address] PCP - General Family Medicine 09/03/24
--- OUTSIDE RECORDS SUMMARY | 2025-02-20 10:01 | XMS_ITS | Encounter Summary ---
Author Organization [facility] Address [address] [place] [address] Care Team Providers Care Snaker Name Role Phone Trinity Russell MD Primary Care Provider + Encounter Details Date Type Department Care Team (Late st Contact Info) Description 09/03/2024 Lab Requisition [facility] - Main Lab [address] [facility] [place] [address] Trinity Russell MD [address] [id number] Hyperlipidemia, unspecified Social History Tobacco Use Types [...] Associated Diagnosis Comments COMPLETE BLOOD COUNT Routine 09/03/2024 7:53 AM EDT Hyperlipidemia, unspecified BASIC METABOLIC PANEL Routine 09/03/2024 7:53 AM EDT Hyperlipidemia, unspecified documented in this encounter Results * (ABNORMAL) Basic metabolic panel (09/03/2024 7:53 AM EDT) Sodium 139 133 - 145 mmol/L LAB CHEMISTRY METHOD 09/03/2024 12:52 PM EDT [facility] Potassium 3.6 3.5 - 5.5 mmol/L LAB CHEMISTRY METHOD 09/03/2024 12:52 PM EDT [facility] Chloride 104 96 - 110 mmol/L LAB CHEMISTRY METHOD 09/03/2024 12:52 PM [facility] CO2 29 21 - 32 mmol/L LAB CHEMISTRY METHOD 09/03/2024 12:52 PM [facility] Anion Gap 6 3 - 11 LAB CHEMISTRY METHOD 09/03/2024 12:52 PM [facility] Glucose 62(L) 70 - 100 mg/dL LAB CHEMISTRY METHOD 09/03/2024 12:52 PM [facility] BUN 22 5 - 25 mg/dL LAB CHEMISTRY METHOD 09/03/2024 12:52 PM [facility] Creatinine 0.79 0.50 - 1.10 mg/dL LAB CHEMISTRY METHOD 09/03/2024 12:52 PM [facility] eGFR 76 >=60 mL/min/1. 73m2 LAB CHEMISTRY METHOD 09/03/2024 12:52 PM [facility] Comment:Calculation based on the Chronic Kidney Disease Epidemiology Collaboration (CKD-EPI) equation refit without adjustment for race. BUN/Creatinine Ratio 27.8 LAB CHEMISTRY METHOD 09/03/2024 12:52 PM [facility] Calcium 8.8 8.5 - 10.5 mg/dL LAB CHEMISTRY METHOD 09/03/2024 12:52 PM [facility] Blood Venous blood specimen / Unknown Venipuncture / Unknown 09/03/2024 7:53 AM EDT 09/03/2024 10:50 AM EDT us Trinity Russell MD LAB BLOOD ORDERABLES Fin al Result [facility] [address] [place] [address], * (ABNORMAL) Complete blood count (09/03/2024 7:53 AM EDT) WBC 3.8(L) 4.8 - 10.8 K/mcL LAB HEMETOLOGY METHOD 09/03/2024 12:20 PM [facility] RBC 4.80 3.80 - 4.80 M/mcL LAB HEMETOLOGY METHOD 09/03/2024 12:20 PM [facility] Hemoglobin 10.8(L) 11.5 - 16.0 g/dL LAB HEMETOLOGY METHOD 09/03/2024 12:20 PM [facility] Hematocrit 36.9 35.0 - 47.0 % LAB HEMETOLOGY METHOD 09/03/2024 12:20 PM [facility] MCV 77.4(L) 79.0 - 98.0 FL LAB HEMETOLOGY METHOD 09/03/2024 12:20 PM [facility] MCH 22.6(L) 27.0 - 32.0 pcg LAB HEMETOLOGY METHOD 09/03/2024 12:20 PM [facility] MCHC 29.3(L) 32.0 - 37.0 g/dL LAB HEMETOLOGY METHOD 09/03/2024 12:20 PM [facility] RDW 14.8 11.0 - 15.0 % LAB HEMETOLOGY METHOD 09/03/2024 12:20 PM [facility] Platelets 270 130 - 400 K/mcL LAB HEMETOLOGY METHOD 09/03/2024 12:20 PM [facility] MPV 9.6 7.0 - 11.0 FL LAB HEMETOLOGY METHOD 09/03/2024 12:20 PM [facility] NRBC 0.0 <1.0 % LAB HEMETOLOGY METHOD 09/03/2024 12:20 PM [facility] NRBC Absolute 0.00 <0.10 K/mcL LAB HEMETOLOGY METHOD 09/03/2024 12:20 PM [facility] Blood Venous blood specimen / Unknown Venipuncture / Unknown 09/03/2024 7:53 AM EDT 09/03/2024 10:50 AM EDT Trinity Russell MD LAB BLOOD ORDERABLES Fin al Result [facility] ([facility] [address] [place] [address], documented in this encounter Visit Diagnoses Diagnosis Hyperlipidemia, unspecified documented in this encounter Care Teams Snaker Relationship Specialty Start Date End Date Trinity Russell MD [address] [place] [address] PCP - General Family Medicine 09/03/24 documented as of this encounter
--- NOTE | 2025-02-20 11:48 | PC.NURSE ---
Call received from Battery Engineer Mariola who calls looking for an update on Pt. Mariola advised that at this time, workup still in progress. Mariola requests a call back @ [phone] re: clinical findings/injuries. Will call back when full report can be given.
[2025-02-20 12:02] LABS: Troponin-I High Sensitivity 23.2 ng/L (<3.5-17.0)
--- NOTE | 2025-02-20 15:14 | PC.NURSE ---
This RN and boat pullerAddie Paon enter Pts room to attempt straight cath procedure. Upon entering the room, Pt found at end of stretcher holding on to side railings. Pt presents as agitated/restless. This RN and Tech Jae verbally redirect Pt and work to get Pt back into bed. At this time it was noticed that Pts linens were soiled with urine and blood from IV beings dislodged. A brief attempt to remove old linens for the head of the bed was made and this time Pt sitting still at end of bed with one staff member on each side of the bed. Pt then noted to be pulling at the back of her brief and without warning or visualization, Pt was then noted to be on the ground. Pt landed on her R side. Unclear of head strike however small lac noted to R eyebrow with small amount of blood. Pt placed back into bed and this RN alert YENY Gilbert of incident. YENY Gilbert to bedside for eval/Tx VS obtained and noted to be stable. Fall precautions remain in place at this time. Video monitoring initiated. Pt will proceed to CT for additional scanning. ISABEL Nguyen aware of incident.
--- NOTE | 2025-02-20 19:47 | PC.NURSE ---
IV placed 20g in left forearm, patient tolerated well. Pt also has a video monitor due to dementia dx and recent falls. Patient alert and conversational. Placed purewick on patient to attempt to get an urine sample. Pt resting comfortably in stretcher with side rails up, yellow socks on and fall risk band. Call casillas is in reach. Patient was asked if she is in pain, if she had to use the bathroom, and if she needed anything prior to walking out of room. Multiple rounds per hour to ensure pt safety.
--- NOTE | 2025-02-20 20:25 | PC.NURSE ---
Straight cath patient due to bladder scan having +200 in her bladder. Needing urine for dispo. Patient tolerated the procedure well with a little discomfort after. Pt is not resting in bed with both side rails up.
[2025-02-20 20:49] LABS: Appearance Urine Clear; Glucose Urine UA Negative (Negative); PH 6.0 (5.0-9.0); Specific Gravity - Urine 1.010 (1.005-1.025); UMIC TRIGGER UACC YES
[2025-02-20 20:54] LABS: UACC Culture Trigger YES
--- NOTE | 2025-02-20 21:55 | MHC.EDTECH ---
Patient inc therefore patient changed and repositioned
--- NOTE | 2025-02-20 22:18 | PC.NURSE ---
Attempted to call facility, spoke to a nurse at one part of [facility], stating she would transfer me to the correct nurse, sent to multiple nurses station, then transferred to a full voicemail. Wrote update on discharge paperwork.
== END 2025-02-20 22:35 | disposition home or self-care (01) ==
PROVIDERS: Physician Assistant Medical; Emergency Provider Emergency Medicine; PCP Internal Medicine
DX: S01.112A Laceration without foreign body of left eyelid and periocular area, initial encounter (principal); W18.30XA Fall on same level, unspecified, initial encounter; Y93.9 Activity, unspecified; Y92.9 Unspecified place or not applicable; Y99.9 Unspecified external cause status; N39.0 Urinary tract infection, site not specified; F03.94 Unspecified dementia, unspecified severity, with anxiety; F20.9 Schizophrenia, unspecified; I10 Essential (primary) hypertension; E11.8 Type 2 diabetes mellitus with unspecified complications; K21.9 Gastro-esophageal reflux disease without esophagitis; Z11.52 Encounter for screening for COVID-19
CPT/HCPCS: 36415; 51701; 70450; 71046; 72125; 80053; 81001; 82550; 82947; 83735; 84484; 85025; 87086; 87088; 87186; 87502; 87635; 93005; 96360; 99284; 99285

== ENCOUNTER → 2025-02-20 08:09 | Outpatient (BNV) | payer MEDICARE, MEDICAID, SELFPAY | PROVIDERS: Emergency Provider Emergency Medicine; PCP Internal Medicine; Visit Provider Radiology Diagnostic Radiology | DX: Z04.3 Encounter for examination and observation following other accident (principal); S09.90XA Unspecified injury of head, initial encounter; J44.9 Chronic obstructive pulmonary disease, unspecified; W19.XXXA Unspecified fall, initial encounter | CPT/HCPCS: 70450; 71046 ==

== ENCOUNTER → 2025-02-20 08:09 | Outpatient (BNV) | payer MEDICARE, MEDICAID, SELFPAY | PROVIDERS: Emergency Provider Emergency Medicine; PCP Internal Medicine; Visit Provider Internal Medicine | DX: R94.31 Abnormal electrocardiogram [ECG] [EKG] (principal) | CPT/HCPCS: 93010 ==